=== PATIENT | male | born 1975 | race Caucasian/White ===

== ENCOUNTER 2021-01-08 13:29 | Emergency (ER) | payer BC, SELFPAY ==
[2021-01-08 13:43] VITALS: BP 143/93; PULSE 92; RESP 18; TEMP 36.7; O2SAT 99; BMI 38.7
--- NOTE | 2021-01-08 14:03 | ED_ITS ---
HPI - COVID General: Chief Complaint: COVID symptoms Stated Complaint: Covid+, low O2 Time Seen by Provider: 01/08/21 13:52 Source: patient Mode of arrival: ambulatory Limitations: no limitations Triage information: Has fever, cough or shortness of breath . Exposure to COVID + person last 14 days History of Present Illness: HPI Narrative: Patient is a 45-year-old male who presents to ED today with a complaint of COVID symptoms. Patient states he initially began getting sick 7 days ago and initially thought it was secondary to allergies. He states since onset symptoms have continued to worsen. He complains of nasal congestion, cough, shortness of breath, fatigue, headache, and diarrhea. He went to [facility] yesterday and tested positive. He was told to come to the ED for MCA. Patient's vitals stable upon arrival. PMH significant for heart disease and obesity. MD complaint: known COVID positive Prior covid testing: yes, results known Prior testing date: 01/07/21 COVID 19 common symptoms: positive cough, non-productive cough, dyspnea, fatigue, body aches, headache(s), nasal congestion and diarrhea; negative fever(s), throat pain, nausea or vomiting COVID 19 other sytmptoms: negative chest pain or confusion Onset (ago): day(s) Severity: mild Pertinent comorbid conditions: heart disease and obesity Treatment prior to arrival: none COVID Results: No Data to Display Review of Systems Const: Reports: body aches and fatigue; Denies: fever(s) Eyes: Denies: change in vision ENMT: Reports: nasal congestion; Denies: throat pain or odynophagia Card: Denies: chest pain, palpitations, irregular heart rhythm, edema, lightheadedness, syncope or pre-syncope Resp: Reports: dyspnea and non-productive cough; Denies: wheezing, hemoptysis or chest congestion GI: Reports: diarrhea; Denies: abdominal pain, nausea, vomiting, hematochezia or melena Musc: Denies: neck pain, back pain, extremity pain or joint pain Skin/Breast: Denies: rash Neuro: Reports: headache(s); Denies: numbness in extremities, weakness in extremities, sensory changes, dizziness or confusion Physical Exam Const: COMMON NORMALS: no acute distress, patient oriented x3, no limitations and alert GENERAL APPEARANCE: cooperative NUTRITIONAL APPEARANCE: obese ORIENTATION/CONSCIOUSNESS: Yes awake, Yes oriented to person, Yes oriented to place and Yes oriented to time HENMT: COMMON NORMALS: normocephalic and atraumatic HEAD & SCALP: normocephalic and atraumatic Resp: COMMON NORMALS: normal respiratory effort and clear to auscultation bilaterally AUSCULTATION: clear to auscultation bilaterally Cardio: COMMON NORMALS: regular rate and regular rhythm RATE: regular rate RHYTHM: regular rhythm Neuro: FLORESITA COMA SCALE: document GCS findings Floresita coma scale eye opening: Spontaneous Donalds coma scale verbal response: Orientated Donalds coma scale motor response: Obey commands Floresita coma scale total score: 15 COMMON NORMALS: patient oriented x3 SENSORIUM/ORIENTATION: Yes alert, Yes oriented to person, Yes oriented to place and Yes oriented to time Skin: COMMON NORMALS: no rashes or lesions noted GENERAL SKIN EXAM: no rashes or lesions noted Course Vital Signs: Vital signs: Vital Signs Temperature 98.1 F 01/08/21 13:43 Pulse Rate 92 01/08/21 13:43 Respiratory Rate 18 01/08/21 13:43 Blood Pressure 143/93 01/08/21 13:43 Pulse Oximetry 99 01/08/21 13:43 MDM - COVID MDM Narrative: Medical decision making narrative: Patient appears in no acute distress. His vital signs are perfect. Patient will be written outpatient orders for MCA. He will be discharged straight from ED to infusion center. [facility] faxed [facility] and verified by myself. They will be scanned into patient's chart. COVID Results: No Data to Display Monoclonal Antibody - ED Inclusion/Exclusion Criteria age >/= 12 years, symptom onset less than 10 days ago and + direct Sars-Cov-2 test less than 7-10 days ago obesity (BMI >25 or 85%til for age) and cardiovascular disease or htn not requiring hospitalization, not requiring oxygen (if not chronically on oxygen) and no increase oxygen requirement (if chronically on oxygen) Patient education patient/family/caregiver received/reviewed fact sheet, Emergency Use Authorization/unapproved drug status discussed with patient/family/caregiver, alternatives to this treatment discussed with patient/family/caregiver, risks and benefits of medication reviewed with patient/family/caregiver, patient/family/caregiver given opportunity for questions, which were answered and patient consents to receiving Monoclonal Antibody Treatment Plan for treatment Meets criteria for Monoclonal Antibody infusion Date of symptom(s) onset: 01/01/21 Where are the positive COVID test results, if positive?: Scanned into [facility] Ordering Monoclonal Antibody infusion for today Discharge Plan Discharge Patient Disposition: Home Clinical Impression: COVID-19 Condition: Stable Discharge Orders: Discharge ED (Routine); Ordered 01/08/21 Ordered By: Zo Jain Other Ambulatory Orders: Request for MCA (Routine) Timeframe: 1 Day Facility: [facility] - Location: Outpatient Surgical Services Ordered By: Zo Jain Patient Instructions: COVID-19 (Coronavirus Disease 2019) (ED) Activity Restrictions/Additional Instructions: Go straight to infusion center for monoclonal antibody treatment/infusion. Coding Level of Care Code ED Behavioral Services Tech for Abril Weber Exam Detailed
== END 2021-01-08 14:20 | disposition home or self-care (01) ==
PROVIDERS: Emergency Provider Physician Assistant
DX: U07.1 COVID-19 (principal)
CPT/HCPCS: 99281

== ENCOUNTER 2021-01-08 14:36 | Outpatient (CLI) | payer BC, SELFPAY ==
[2021-01-08 14:44] VITALS: BP 127/83; PULSE 97; RESP 19; TEMP 36.8; O2SAT 98; BMI 38.7
[2021-01-08 15:15] VITALS: BP 142/81; PULSE 97; RESP 19; TEMP 36.8; O2SAT 98
[2021-01-08 16:06] VITALS: BP 130/81; PULSE 92; RESP 19; TEMP 36.2; O2SAT 97
== END 2021-01-08 14:37 | disposition home or self-care (01) ==
PROVIDERS: Visit Provider Family Medicine
DX: U07.1 COVID-19 (principal)
CPT/HCPCS: 96365

== ENCOUNTER 2021-01-10 01:34 | Inpatient (IN) | payer BC, SELFPAY ==
[2021-01-10] VITALS (43 sets, daily range): BP systolic 92–176; BP diastolic 61–109; PULSE 89–130; RESP 3–31; TEMP 36.2–36.8; O2SAT 95–100; BMI 34.9
--- NOTE | 2021-01-10 01:50 | XRR_ITS ---
PROCEDURE INFORMATION: Exam: XR Chest Exam date and time: 01/10/2021 1:50 AM Age: 45 years old Clinical indication: Shortness of breath; Prior surgery; Surgery type: Coronary stents x 2; Patient HX: Severe SOB. Covid + TECHNIQUE: Imaging protocol: XR of the chest. Views: 1 view. COMPARISON: No relevant prior studies available. FINDINGS: Lungs: There are patchy ground-glass opacities present within the mid and lower hemithoraces bilaterally, left slightly worse than the right, findings compatible with a bilateral interstitial pneumonia. COVID-19 pneumonia can have this appearance. Pleural spaces: Unremarkable. No pleural effusion. No pneumothorax. Heart/Mediastinum: Unremarkable. No cardiomegaly. Bones/joints: Unremarkable. XR/XR chest 1V portable [id number] IMPRESSION: Patchy ground-glass opacities within the mid lower hemithoraces bilaterally compatible with a bilateral interstitial pneumonia. Radiation Dose CTDIVOL = (mGy): DLP = (mGy-cm)
--- NOTE | 2021-01-10 01:57 | ED_ITS ---
Documented by User: RHONDA Liriano 01/10/21 02:01 HPI - General Adult General: Chief complaint: Nausea/Vomiting/Diarrhea Stated complaint: SOB, COVID +, COVID INFUSION ON WED Time Seen by Provider: 01/10/21 01:40 History of Present Illness: HPI narrative: Patient improved presents with increased shortness of breath from home this evening. Patient recently diagnosed with Covid he is post 10 days start of symptoms. Received monoclonal antibody infusion. Patient states he just been weak not able to eat well has been drinking fluids. But he said increased shortness of breath began this evening he has been having some nausea and dry heaves and cough. And the cough is nonproductive. Has not had a fever the whole time. Does have a history of 3 stents placed at age 37. Patient has chest discomfort. MD complaint: Shortness of breath recent Covid positive Onset (ago): hour(s) Severity scale (1-10): 8 Associated symptoms: Reports cough, decreased appetite, dyspnea, fevers/chills, nausea and other (Sore throat); Deny chest pain, headache(s) or rash Review of Systems Const: Denies: fever(s), chills or body aches Eyes: Denies: eye discharge ENMT: Reports: throat pain; Denies: oral sores or nasal congestion Card: Denies: chest pain or dyspnea on exertion Resp: Reports: dyspnea and non-productive cough GI: Reports: nausea : Denies: difficulty urinating Musc: Reports: other (Myalgias); Denies: extremity pain Skin/Breast: Denies: rash Neuro: Denies: headache(s) Psych: Denies: anxiety or depression John/Lymph: Denies: easy bruising Physical Exam Const: COMMON NORMALS: no acute distress (Child appears very well is playful in no distress) GENERAL APPEARANCE: cooperative HENMT: COMMON NORMALS: normocephalic, external ears normal, EAC's normal, TM's normal bilaterally and Normal external nose present HEAD & SCALP: normal to inspection and normocephalic FACE & SINUS: normal facial exam NOSE: Normal external nose present and No nasal discharge present EXTERNAL EAR: Yes external ears normal EXTERNAL AUDITORY CANAL: EAC's normal TYMPANIC MEMBRANE: TM's normal bilaterally MOUTH: Normal oral and palatal mucosa present THROAT: posterior oropharynx normal Eye: COMMON NORMALS: conjunctivae normal CONJUNCTIVA: Yes conjunctivae normal Lymph: LYMPHATIC: no lymphadenopathy noted Chest: COMMONS NORMALS: normal inspection of the chest Resp: COMMON NORMALS: No retractions and No use of accessory muscles EFFORT & INSPECTION: Yes tachypneic AUSCULTATION: rhonchi Cardio: COMMON NORMALS: regular rhythm RATE: tachycardic RHYTHM: regular rhythm GI: COMMON NORMALS: Normal to inspection, nondistended, normoactive bowel sounds present Extremity: COMMON NORMALS: normal to inspection Skin: COMMON NORMALS: no rashes or lesions noted NARRATIVE SKIN EXAM: Lower extremities cool to touch. Pulses intact. GENERAL SKIN EXAM: no rashes or lesions noted Course Vital Signs: Vital signs: Vital Signs Temperature 97.1 F L 01/10/21 01:45 Pulse Rate 130 H 01/10/21 01:45 Respiratory Rate 30 H 01/10/21 01:45 Blood Pressure 142/95 01/10/21 01:45 Pulse Oximetry 96 01/10/21 01:45 [facility] - General Adult Lab Data: Labs: Lab Results 01/10/21 01/10/21 01/10/21 02:05 02:05 02:05 WBC 11.1 10^3/uL H 10 ^3/uL (4.0-10.0) RBC 5.21 10^6/uL 10^6 /uL (4.1-5.3) Hgb 15.8 g/dL g/dL (11.7-16.6) Hct 49.5 % % (42.0-52.0) MCV 95.0 fl H fl (80-94) MCH 30.3 pg pg (28.0-34.0) MCHC 31.9 g/dL g/dL (30.0-36.0) RDW 12.0 % L % (12.1-15.1) Plt Count 337 10^3/cmm 10^3 /cmm (130-400) MPV 10.2 fL fL (7.4-10.4) Neut % (Auto) 84.3 % % Lymph % (Auto) 8.6 % % [place] % (Auto) 5.2 % % Eos % (Auto) 0.0 % % Baso % (Auto) 0.3 % % Neut # (Auto) 9.36 10^3/uL H 10 ^3/uL (1.8-7.7) Lymph # (Auto) 1.0 10^3/uL 10^3/ uL (0.8-4.8) [place] # (Auto) 0.6 10^3/uL 10^3/ uL (0.2-0.9) Eos # (Auto) 0.0 10^3/uL 10^3/ uL (0.0-0.8) Baso # (Auto) 0.0 10^3/uL 10^3/ uL (0.0-0.1) Nucleated RBC % (a uto) 0 % % Nucleated RBCs # 0.0 /100WBC /100W BC PT Cancelled INR Cancelled D-Dimer Cancelled Specimen Type Sample Site ABG pO2 ABG HCO3 ABG Base Excess Ronald Test Hematocrit O2 Delivery Device FiO2 Crop And Soil Technician ID Sodium 124 mmol/L L mmol /L (136-145) Potassium 5.1 mmol/L mmol/L (3.5-5.1) Chloride 87 mmol/L L mmol/ L (98-107) Carbon Dioxide 6 mmol/L L* mmol/ L (22-29) Anion Gap 36.1 H (5-19) BUN 22 mg/dL H mg/dL (6-20) Creatinine 0.9 mg/dL mg/dL (0.7-1.2) GFR Calculation 90.8 mL/min mL/mi n (90-130) Glucose 450 mg/dL H mg/dL (65-115) POC Glucose Calculated Osmolal ity 281 mOsm/kg L mOs m/kg (285-295) Lactate Calcium 8.3 mg/dL L mg/dL (8.5-10.5) Total Bilirubin 0.2 mg/dL mg/dL (0.15-1.2) AST 19 U/L U/L (0-40) ALT 24 U/L U/L (0-41) Alkaline Phosphata se 93 IU/L IU/L (40-130) Troponin T Baselin e Total Protein 6.3 g/dL L g/dL (6.6-8.7) Albumin 3.4 g/dL L g/dL (3.5-5.2) Globulin 2.9 g/dL g/dL (1.3-4.6) Serum Ketones 01/10/21 01/10/2121 02:05 02:05 02:05 WBC RBC Hgb Hct MCV MCH MCHC RDW Plt Count MPV Neut % (Auto) Lymph % (Auto) [place] % (Auto) Eos % (Auto) Baso % (Auto) Neut # (Auto) Lymph # (Auto) [place] # (Auto) Eos # (Auto) Baso # (Auto) Nucleated RBC % (a uto) Nucleated RBCs # PT INR D-Dimer Specimen Type Sample Site ABG pO2 ABG HCO3 ABG Base Excess Ronald Test Hematocrit O2 Delivery Device FiO2 Crop And Soil Technician ID Sodium Potassium Chloride Carbon Dioxide Anion Gap BUN Creatinine GFR Calculation Glucose POC Glucose Calculated Osmolal ity Lactate 2.0 mmol/L mmol/L (0.5-2.2) Calcium Total Bilirubin AST ALT Alkaline Phosphata se Troponin T Baselin e 111 ng/L H* ng/L (0-15) Total Protein Albumin Globulin Serum Ketones Positive H (Negative) 01/10/21 01/10/21 02:54 02:58 WBC RBC Hgb Hct MCV MCH MCHC RDW Plt Count MPV Neut % (Auto) Lymph % (Auto) [place] % (Auto) Eos % (Auto) Baso % (Auto) Neut # (Auto) Lymph # (Auto) [place] # (Auto) Eos # (Auto) Baso # (Auto) Nucleated RBC % (a uto) Nucleated RBCs # PT INR D-Dimer Specimen Type Arterial Sample Site Radial, left ABG pO2 119.0 mmHg H mmHg (80.0-100.0) ABG HCO3 2.7 mmol/L L mmol /L (22-26) ABG Base Excess -26.2 mmol/L L mm ol/L (-2.0-2.0) Ronald Test Pos Hematocrit 46.8 % % (42-52) O2 Delivery Device None FiO2 21.0 % % Crop And Soil Technician ID [email or web address] Sodium Potassium Chloride Carbon Dioxide Anion Gap BUN Creatinine GFR Calculation Glucose POC Glucose 417 mg/dL H mg/dL (70-110) Calculated Osmolal ity Lactate Calcium Total Bilirubin AST ALT Alkaline Phosphata se Troponin T Baselin e Total Protein Albumin Globulin Serum Ketones EKG Data^: EKG 1: Computer generated interpretation: Chest X-Ray 01/10/21 01:50 IMPRESSION: Patchy ground-glass opacities within the mid lower hemithoraces bilaterally compatible with a bilateral interstitial pneumonia. Radiation Dose CTDIVOL = (mGy): DLP = (mGy-cm) Discharge Plan Discharge Patient Disposition: Admitted As Inpatient Clinical Impression: COVID-19, DKA (diabetic ketoacidosis) Condition: Stable Coding Level of Care Code ED Captain/Airline Pilot for Chg Fwd Exam Comprehensive Documented by User: Nicholas Garcia MD 01/10/21 03:18 HPI - General Adult General: Chief complaint: Nausea/Vomiting/Diarrhea Stated complaint: SOB, COVID +, COVID INFUSION ON WED Time Seen by Provider: 01/10/21 01:40 Course Vital Signs: Vital signs: Vital Signs Temperature 97.1 F L 01/10/21 01:45 Pulse Rate 130 H 01/10/21 01:45 Respiratory Rate 30 H 01/10/21 01:45 Blood Pressure 142/95 01/10/21 01:45 Pulse Oximetry 96 01/10/21 01:45 MDM - General Adult MDM Narrative: Medical decision making narrative: I saw patient with the midlevel patient is in DKA likely from some dehydration and his Covid infection. He is now requiring any oxygen for his Covid he does have an acidosis from his DKA with an anion gap. Patient started on insulin drip given IV fluids here I spoke to the hospitalist will admit to the ICU at this time. Lab Data: Labs: Lab Results 01/10/21 01/10/21 01/10/21 02:05 02:05 02:05 WBC 11.1 10^3/uL H 10 ^3/uL (4.0-10.0) RBC 5.21 10^6/uL 10^6 /uL (4.1-5.3) Hgb 15.8 g/dL g/dL (11.7-16.6) Hct 49.5 % % (42.0-52.0) MCV 95.0 fl H fl (80-94) MCH 30.3 pg pg (28.0-34.0) MCHC 31.9 g/dL g/dL (30.0-36.0) RDW 12.0 % L % (12.1-15.1) Plt Count 337 10^3/cmm 10^3 /cmm (130-400) MPV 10.2 fL fL (7.4-10.4) Neut % (Auto) 84.3 % % Lymph % (Auto) 8.6 % % [place] % (Auto) 5.2 % % Eos % (Auto) 0.0 % % Baso % (Auto) 0.3 % % Neut # (Auto) 9.36 10^3/uL H 10 ^3/uL (1.8-7.7) Lymph # (Auto) 1.0 10^3/uL 10^3/ uL (0.8-4.8) [place] # (Auto) 0.6 10^3/uL 10^3/ uL (0.2-0.9) Eos # (Auto) 0.0 10^3/uL 10^3/ uL (0.0-0.8) Baso # (Auto) 0.0 10^3/uL 10^3/ uL (0.0-0.1) Nucleated RBC % (a uto) 0 % % Nucleated RBCs # 0.0 /100WBC /100W BC PT Cancelled INR Cancelled D-Dimer Cancelled Specimen Type Sample Site ABG pO2 ABG HCO3 ABG Base Excess Ronald Test Hematocrit O2 Delivery Device FiO2 Crop And Soil Technician ID Sodium 124 mmol/L L mmol /L (136-145) Potassium 5.1 mmol/L mmol/L (3.5-5.1) Chloride 87 mmol/L L mmol/ L (98-107) Carbon Dioxide 6 mmol/L L* mmol/ L (22-29) Anion Gap 36.1 H (5-19) BUN 22 mg/dL H mg/dL (6-20) Creatinine 0.9 mg/dL mg/dL (0.7-1.2) GFR Calculation 90.8 mL/min mL/mi n (90-130) Glucose 450 mg/dL H mg/dL (65-115) POC Glucose Calculated Osmolal ity 281 mOsm/kg L mOs m/kg (285-295) Lactate Calcium 8.3 mg/dL L mg/dL (8.5-10.5) Total Bilirubin 0.2 mg/dL mg/dL (0.15-1.2) AST 19 U/L U/L (0-40) ALT 24 U/L U/L (0-41) Alkaline Phosphata se 93 IU/L IU/L (40-130) Troponin T Baselin e Total Protein 6.3 g/dL L g/dL (6.6-8.7) Albumin 3.4 g/dL L g/dL (3.5-5.2) Globulin 2.9 g/dL g/dL (1.3-4.6) Serum Ketones 01/10/21 01/10/21 01/10/21 02:05 02:05 02:05 WBC RBC Hgb Hct MCV MCH MCHC RDW Plt Count MPV Neut % (Auto) Lymph % (Auto) [place] % (Auto) Eos % (Auto) Baso % (Auto) Neut # (Auto) Lymph # (Auto) [place] # (Auto) Eos # (Auto) Baso # (Auto) Nucleated RBC % (a uto) Nucleated RBCs # PT INR D-Dimer Specimen Type Sample Site ABG pO2 ABG HCO3 ABG Base Excess Ronald Test Hematocrit O2 Delivery Device FiO2 Crop And Soil Technician ID Sodium Potassium Chloride Carbon Dioxide Anion Gap BUN Creatinine GFR Calculation Glucose POC Glucose Calculated Osmolal ity Lactate 2.0 mmol/L mmol/L (0.5-2.2) Calcium Total Bilirubin AST ALT Alkaline Phosphata se Troponin T Baselin e 111 ng/L H* ng/L (0-15) Total Protein Albumin Globulin Serum Ketones Positive H (Negative) 01/10/21 01/10/21 02:54 02:58 WBC RBC Hgb Hct MCV MCH MCHC RDW Plt Count MPV Neut % (Auto) Lymph % (Auto) [place] % (Auto) Eos % (Auto) Baso % (Auto) Neut # (Auto) Lymph # (Auto) [place] # (Auto) Eos # (Auto) Baso # (Auto) Nucleated RBC % (a uto) Nucleated RBCs # PT INR D-Dimer Specimen Type Arterial Sample Site Radial, left ABG pO2 119.0 mmHg H mmHg (80.0-100.0) ABG HCO3 2.7 mmol/L L mmol /L (22-26) ABG Base Excess -26.2 mmol/L L mm ol/L (-2.0-2.0) Ronald Test Pos Hematocrit 46.8 % % (42-52) O2 Delivery Device None FiO2 21.0 % % Crop And Soil Technician ID [email or web address] Sodium Potassium Chloride Carbon Dioxide Anion Gap BUN Creatinine GFR Calculation Glucose POC Glucose 417 mg/dL H mg/dL (70-110) Calculated Osmolal ity Lactate Calcium Total Bilirubin AST ALT Alkaline Phosphata se Troponin T Baselin e Total Protein Albumin Globulin Serum Ketones EKG Data^: EKG 1: Attestation: I personally reviewed and interpreted this EKG as follows: EKG interpretation date: 01/10/21 EKG interpretation time: 02:09 Interpretation: atrial flutter hr [address] or t wave abnormalities qrs 109 qtc 418 Computer generated interpretation: Chest X-Ray 01/10/21 01:50 IMPRESSION: Patchy ground-glass opacities within the mid lower hemithoraces bilaterally compatible with a bilateral interstitial pneumonia. Radiation Dose CTDIVOL = (mGy): DLP = (mGy-cm) Critical Care Time Critical Care Time: Critical Care Time: Yes Total Critical Care Time: 35 Attestation: The high probability of a clinically significant, sudden or life threatening deterioration of the patient's [] system(s) required my full and direct attention, intervention and personal management. The critical care time is as shown. This time is in addition to time spent performing any reported procedures but includes the following: [x] Data and vital sign review and interpretation [x] Patient assessment, examination and intervention [x] Documentation [x] Medication orders and management Discharge Plan Discharge Patient Disposition: Admitted As Inpatient Clinical Impression: COVID-19, DKA (diabetic ketoacidosis) Condition: Stable Coding Level of Care Code ED Captain/Airline Pilot for Chg Fwd Exam Comprehensive
--- NOTE | 2021-01-10 01:57 | ECG_ITS ---
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 Measurements Intervals [place] Rate: 129 P: AR: QRS: -9 QRSD: 109 T: 68 QT: 342 QTc: 502 Interpretive Statements SINUS TACHYCARDIA LOW QRS VOLTAGE IN EXTREMITY LEADS [QRS DEFLECTION < 0.5 mV IN LIMB LEADS] SEPTAL MYOCARDIAL INFARCTION , OF INDETERMINATE AGE [40+ ms Q WAVE IN V1/V2] No previous ECG available for comparison Electronically Signed On 01-10-2021 19:47:11 DIRECTOR OF DISTANCE LEARNING by Tommie Rodriguez M.D. [id number]
[2021-01-10] MEDS: ondansetron 2 mg/ML SDV 2 mL 4 MG IVP ×2 (02:07→11:17)
[2021-01-10] MEDS: sodium chloride 0.9% 1,000 ML 999 ML IV ×2 (02:07→03:01)
[2021-01-10 02:14] LABS: Basophils % 0.3 %; Hematocrit 49.5 % (42.0-52.0); Hemoglobin 15.8 g/dL (11.7-16.6); Lymphocytes % 8.6 %; Mean Corpuscular HGB Conc 31.9 g/dL (30.0-36.0); Mean Corpuscular Hemoglobin 30.3 pg (28.0-34.0); Mean Platelet Volume 10.2 fL (7.4-10.4); Monocytes # 0.6 10^3/uL (0.2-0.9); Monocytes % 5.2 %; Neutrophils # 9.36 10^3/uL (1.8-7.7); Neutrophils % 84.3 %; Nucleated Red Blood Cells % 0 %; Platelet Count 337 10^3/cmm (130-400); Red Blood Count 5.21 10^6/uL (4.1-5.3); White Blood Count 11.1 10^3/uL (4.0-10.0)
[2021-01-10 02:33] LABS: Alanine Aminotransferase 24 U/L (0-41); Albumin Level 3.4 g/dL (3.5-5.2); Alkaline Phosphatase 93 IU/L (40-130); Anion Gap 36.1 (5-19); Aspartate Amino Transferase 19 U/L (0-40); Blood Urea Nitrogen 22 mg/dL (6-20); Calcium 8.3 mg/dL (8.5-10.5); Chloride 87 mmol/L (98-107); Globulin 2.9 g/dL (1.3-4.6); Glomerular Filtration Rate 90.8 mL/min (90-130); Glucose 450 mg/dL (65-115); Osmolality Calculated 281 mOsm/kg (285-295); Potassium 5.1 mmol/L (3.5-5.1); Sodium 124 mmol/L (136-145); Total Bilirubin 0.2 mg/dL (0.15-1.2); Total Protein 6.3 g/dL (6.6-8.7)
[2021-01-10 02:41] LABS: Troponin(5th) Baseline 111 ng/L (0-15)
[2021-01-10 02:43] LABS: Carbon Dioxide 6 mmol/L (22-29)
[2021-01-10 03:02] LABS: Ketone (Acetest) Serum Positive (Negative)
[2021-01-10 03:03] LABS: Glucose Point of Care 417 mg/dL (70-110)
[2021-01-10 03:09] LABS: Arterial Blood Gas Hematocrit 46.8 % (42-52); Base Excess ABG -26.2 mmol/L (-2.0-2.0); Blood Gas Allen Test Pos; Blood Gas Sample Type Arterial; HCO3 ABG 2.7 mmol/L (22-26)
[2021-01-10 03:10] LABS: Blood Gas Sample Site Radial, left
[2021-01-10] MEDS: insulin regular-human 250 UNIT in sodium chloride 0.9% 250 ML 10.6 UNIT IV (03:23)
--- NOTE | 2021-01-10 03:54 | PM.HP ---
Providers/Chief Complaint Admitting Physician: Santiago Chau Chief Complaint: SOB, COVID +, COVID INFUSION ON WED History of Present Illness Harry Rizo is a 45 year old male with past medical history of diabetes, dyslipidemia, hypertension who presents with complaints of shortness of breath and cough since last 11 or 12 days. The patient was diagnosed with Covid and was treated with monoclonal antibodies. Denies associated chest pain, fever or chills. Reports runny nose and congestion. Reports nausea but no vomiting. No abdominal pain. No diarrhea. He was not able to drink or eat well. The patient has par-mosjtyz-xnxoehsei diabetes. Today he was found to have severe DKA in the emergency room. Chest x-ray revealed bilateral infiltrates consistent with Covid pneumonia. The patient reports prior episodes of DKA. Review of Systems General: Reports: 10 or more systems reviewed and unremarkable except in HPI and below Medications/Allergies Home Medications Medication Instructions Recorded Confirmed Last Taken Type atorvastatin 01/08/21 Unknown History clopidogrel [Plavix] 75 mg PO 01/08/21 Unknown History lisinopril 01/08/21 Unknown History metformin mg 01/08/21 Unknown History metoprolol tartrate 01/08/21 Unknown History pantoprazole PO 01/08/21 Unknown History polymyxin B sulf-trimethoprim 01/08/21 01/08/21 Unknown History Allergies Allergy/AdvReac Type Severity Reaction Status Date / Time acetaminophen [From Vicodin] Allergy ALGY-Swell Verified 01/08/21 14:46 Lip/Tongue/Throat hydrocodone [From Vicodin] Allergy ALGY-Swell Verified 01/08/21 14:46 Lip/Tongue/Throat Vitals/I&O/Wt Last Vital Signs Temp 97.1 F L 01/10/21 01:45 Pulse 104 H 01/10/21 01:49 Resp 22 H 01/10/21 01:49 BP 142/95 01/10/21 01:49 Pulse Ox 99 01/10/21 01:49 01/09/21 01/09/21 01/10/21 14:59 22:59 06:59 Intake Total 1000 / 1000 Balance 1000 / 1000 Weight last 48 hrs Weight 104.326 kg Physical Exam Narrative: EXAM NARRATIVE: The patient is awake alert. Moderate distress secondary to cough. Oriented x4. Mood and affect are appropriate. Responses are adequate. Skin is warm and dry. Moist mucous membranes Eyes PERRL, extraocular muscles are intact Neck supple. No JVD Lungs minimal bilateral crackles. No respiratory distress. However he coughs a lot. The cough is dry. Heart S1, S2, regular Abdomen is soft, nontender, bowel sounds are present Extremities no edema cyanosis or calf tenderness bilaterally No focal deficits. Normal speech. Data : 01/10/21 02:05 01/10/21 02:05 Other Labs: Laboratory Results WBC 11.1 10^3/uL (4.0-10.0) H 01/10/21 02:05 RBC 5.21 10^6/uL (4.1-5.3) 01/10/21 02:05 Hgb 15.8 g/dL (11.7-16.6) 01/10/21 02:05 Hct 49.5 % (42.0-52.0) 01/10/21 02:05 MCV 95.0 fl (80-94) H 01/10/21 02:05 MCH 30.3 pg (28.0-34.0) 01/10/21 02:05 MCHC 31.9 g/dL (30.0-36.0) 01/10/21 02:05 RDW 12.0 % (12.1-15.1) L 01/10/21 02:05 Plt Count 337 10^3/cmm (130-400) 01/10/21 02:05 MPV 10.2 fL (7.4-10.4) 01/10/21 02:05 Neut % (Auto) 84.3 % 01/10/21 02:05 Lymph % (Auto) 8.6 % 01/10/21 02:05 Alexander % (Auto) 5.2 % 01/10/21 02:05 Eos % (Auto) 0.0 % 01/10/21 02:05 Baso % (Auto) 0.3 % 01/10/21 02:05 Neut # (Auto) 9.36 10^3/uL (1.8-7.7) H 01/10/21 02:05 Lymph # (Auto) 1.0 10^3/uL (0.8-4.8) 01/10/21 02:05 Alexander # (Auto) 0.6 10^3/uL (0.2-0.9) 01/10/21 02:05 Eos # (Auto) 0.0 10^3/uL (0.0-0.8) 01/10/21 02:05 Baso # (Auto) 0.0 10^3/uL (0.0-0.1) 01/10/21 02:05 Nucleated RBC % (auto) 0 % 01/10/21 02:05 Nucleated RBCs # 0.0 /100WBC 01/10/21 02:05 PT Cancelled 01/10/21 02:05 INR Cancelled 01/10/21 02:05 D-Dimer Cancelled 01/10/21 02:05 Specimen Type Arterial 01/10/21 02:58 Sample Site Radial, left 01/10/21 02:58 ABG pO2 119.0 mmHg (80.0-100.0) H 01/10/21 02:58 ABG HCO3 2.7 mmol/L (22-26) L 01/10/21 02:58 ABG Base Excess -26.2 mmol/L (-2.0-2.0) L 01/10/21 02:58 Ronald Test Pos 01/10/21 02:58 Hematocrit 46.8 % (42-52) 01/10/21 02:58 O2 Delivery Device None 01/10/21 02:58 FiO2 21.0 % 01/10/21 02:58 Administrative Office Specialist ID [email or web address] 01/10/21 02:58 Sodium 124 mmol/L (136-145) L 01/10/21 02:05 Potassium 5.1 mmol/L (3.5-5.1) 01/10/21 02:05 Chloride 87 mmol/L (98-107) L 01/10/21 02:05 Carbon Dioxide 6 mmol/L (22-29) L* 01/10/21 02:05 Anion Gap 36.1 (5-19) H 01/10/21 02:05 BUN 22 mg/dL (6-20) H 01/10/21 02:05 Creatinine 0.9 mg/dL (0.7-1.2) 01/10/21 02:05 GFR Calculation 90.8 mL/min (90-130) 01/10/21 02:05 Glucose 450 mg/dL (65-115) H 01/10/21 02:05 POC Glucose 417 mg/dL (70-110) H 01/10/21 02:54 Calculated Osmolality 281 mOsm/kg (285-295) L 01/10/21 02:05 Lactate 2.0 mmol/L (0.5-2.2) 01/10/21 02:05 Calcium 8.3 mg/dL (8.5-10.5) L 01/10/21 02:05 Total Bilirubin 0.2 mg/dL (0.15-1.2) 01/10/21 02:05 AST 19 U/L (0-40) 01/10/21 02:05 ALT 24 U/L (0-41) 01/10/21 02:05 Alkaline Phosphatase 93 IU/L (40-130) 01/10/21 02:05 Troponin T Baseline 111 ng/L (0-15) H* 01/10/21 02:05 Total Protein 6.3 g/dL (6.6-8.7) L 01/10/21 02:05 Albumin 3.4 g/dL (3.5-5.2) L 01/10/21 02:05 Globulin 2.9 g/dL (1.3-4.6) 01/10/21 02:05 Serum Ketones Positive (Negative) H 01/10/21 02:05 Impressions Chest X-Ray 01/10/21 01:50 IMPRESSION: Patchy ground-glass opacities within the mid lower hemithoraces bilaterally compatible with a bilateral interstitial pneumonia. Radiation Dose CTDIVOL = (mGy): DLP = (mGy-cm) A&P Assessment and plan (1) COVID-19: Status: Acute (2) DKA (diabetic ketoacidosis): Status: Acute (3) Troponin I above reference range: Status: Acute (4) Hyponatremia: Status: Acute Additional A&P Information 45-year-old male with past medical history of type 2 diabetes, not on insulin who is presenting with shortness of breath and cough. The patient is recently diagnosed with COVID-19 pneumonia. Status post monoclonal antibody infusion. Not on any specific treatments for Covid. Emergency room he is found to have severe DKA. No respiratory distress or hypoxia. Severe DKA. The patient is being admitted to ICU. Due to COVID-19 will need to be more careful with IV fluids. He already received a bolus of IV fluids. We will continue hydration in ICU at 150 cc/h. We will repeat chemistry panel 4 hours to adjust fluids and electrolytes. He will be on insulin drip protocol. COVID-19 pneumonia. No hypoxia or respiratory failure. We will continue symptomatic management. I feel that we need to avoid steroids until we stabilize his DKA. We will consider it later. He is out of window for remdesivir. Supportive care now. Oxygen to maintain his oxygenation at 94-95. Hyponatremia. Probably secondary to above. Will manage with IV fluids and monitor. DVT prophylaxis. Lovenox. Will order D-dimer. Will consider higher doses of Lovenox if D-dimer is elevated. Abnormal troponin. I could not find the EKG in ER. We will check the next EKG. However he is not having any chest pain. We will start him on aspirin and Lipitor. We will monitor his EKG and troponin level. CODE STATUS. He wants to be full code. The plan of care was discussed with the patient and his . They verbalized understanding and agreement. Attestations Medical Necessity Statement*: Based on my assessment of patient's current condition, findings, diagnosis and plan of care I expect that the patient will spend more than 2 midnights in the hospital Coding Level of Care Code Acute Medical Billing Assistant for g Fwd Diagnoses COVID-19 U07.1 DKA (diabetic ketoacidosis) E11.10 Troponin I above reference range R77.8 Hyponatremia E87.1
--- NOTE | 2021-01-10 03:57 | ECG_ITS ---
[facility] Test Date: 2021-01-10 Pat Name: Harry Rizo Department: Room: ICU10 Gender: Male Antenna Specialist: : 1975 Requested By: David Slaughter Order Number: [id number] Mee MD: Tommie Rodriguez M.D. Measurements Intervals [place] Rate: 122 P: 42 WV: 163 QRS: -7 QRSD: 92 T: 62 QT: 363 QTc: 519 Interpretive Statements SINUS TACHYCARDIA LOW QRS VOLTAGE [QRS DEFLECTION < 0.5/1.0 mV IN LIMB/CHEST LEADS] ANTEROSEPTAL MYOCARDIAL INFARCTION , OF INDETERMINATE AGE [40+ ms Q WAVE IN V1-V4] Compared to ECG 01/10/2021 02:09:51 Atrial flutter no longer present Myocardial infarct finding still present Electronically Signed On 01-10-2021 19:52:10 CERTIFIED MEDICATION AIDE by Tommie Rodriguez M.D. [email or web address] hospitalCookapptrinity [facility].[employer]/store/[id number]
[2021-01-10 04:15] LABS: Troponin 5 2HR 171.3 ng/L (0-15); Troponin 5 2HR Delta 60.3 ABS# (0-10)
[2021-01-10] MEDS: aspirin 81 mg EC Tablet PO ×2 (04:32→08:38)
[2021-01-10] MEDS: famotidine 20 mg/2 mL INJ IVP ×2 (04:32→15:36)
[2021-01-10] MEDS: enoxaparin 100 mg/mL Syringe SUBCUT ×2 (04:32→15:36)
[2021-01-10] MEDS: metoprolol tartrate 50 mg Tablet PO ×3 (04:33→19:57)
[2021-01-10] MEDS: sodium chloride 0.9% 1,000 ML 150 ML IV (04:33)
[2021-01-10 04:34] LABS: ABG PH Result 7.02 (7.35-7.45)
[2021-01-10 04:35] LABS: Albumin Level 3.1 g/dL (3.5-5.2); Anion Gap 32.6 (5-19); Blood Urea Nitrogen 23 mg/dL (6-20); C Reactive Protein 31.2 mg/L (0.0-4.9); Calcium 7.7 mg/dL (8.5-10.5); Chloride 92 mmol/L (98-107); Glomerular Filtration Rate 90.8 mL/min (90-130); Glucose 413 mg/dL (65-115); Magnesium 1.9 mg/dL (1.7-2.3); Phosphorus 3.5 mg/dL (2.5-4.5); Potassium 4.6 mmol/L (3.5-5.1); Sodium 126 mmol/L (136-145)
[2021-01-10 04:35] LABS: ABG PCO2 10.3 mmHg (35-45)
[2021-01-10 04:39] LABS: Carbon Dioxide 6 mmol/L (22-29)
[2021-01-10 04:47] LABS: D Dimer 1.15 ug/mIFEU (0-0.59)
--- NOTE | 2021-01-10 05:00 | PC.NURSE ---
Arrived from ED approximately 0400, transferred self to bed, AO x4 follows commands, RR slightly labored on RA O2 sat high 90s denied SOB, no c/o at this time
[2021-01-10 05:14] LABS: Estmated Average Glucose 387
[2021-01-10 05:17] LABS: Hemoglobin A1C 15.1 % (4.0-6.0)
--- NOTE | 2021-01-10 07:57 | ECG_ITS ---
[facility] Test Date: 2021-01-10 Pat Name: Harry Rizo Department: Room: ICU10 Gender: Male Staff Psychologist: : 1975 Requested By: David Slaughter Order Number: [id number] Mee MD: Tommie Rodriguez M.D. Measurements Intervals [place] Rate: 98 P: 57 GA: 168 QRS: -15 QRSD: 86 T: 68 QT: 372 QTc: 476 Interpretive Statements SINUS RHYTHM LOW QRS VOLTAGE [QRS DEFLECTION < 0.5/1.0 mV IN LIMB/CHEST LEADS] POSSIBLE RIGHT VENTRICULAR CONDUCTION DELAY [RSR (QR) IN V1/V2] ANTEROSEPTAL MYOCARDIAL INFARCTION , OF INDETERMINATE AGE [40+ ms Q WAVE IN V1-V4] Compared to ECG 01/10/2021 04:42:49 Sinus tachycardia no longer present Myocardial infarct finding still present Electronically Signed On 01-10-2021 19:51:41 MANAGER PHARMACEUTICAL by Tommie Rodriguez M.D. [email or web address] [email or web address]/[id number]
--- NOTE | 2021-01-10 08:12 | USCV_ITS ---
Harry Rizo Age: 45 Gender: M : 1975 Exam Date: 01/10/2021 08:49 Ordering Phys: Micheal Castellanos MD Technologist: Kinsey Pruitt [place] [facility] [place]: [place]B BP: 103 / 65 HR: 101 Rhythm: Sinus Technical Quality: Adequate MEASUREMENTS (Male / Female) Normal Values 2D ECHO LV Diastolic Diameter PLAX 3.1 cm 4.2 - 5.9 / 3.9 - 5.3 cm LV Systolic Diameter PLAX 2.4 cm IVS Diastolic Thickness 1.4 cm 0.6 - 1.0 / 0.6 - 0.9 cm IVS Systolic Thickness 2.0 cm LVPW Diastolic Thickness 2.0 cm 0.6 - 1.0 / 0.6 - 0.9 cm LVPW Systolic Thickness 2.5 cm LVOT Diameter 2.0 cm LV Ejection Fraction 2D Teich 45.6 % LV Ejection Fraction MOD 2C 38.6 % LV Ejection Fraction 2C AL 38.9 % LA Diameter 3.5 cm LA Width 2.8 cm LA Height 3.5 cm RA Width 2.8 cm RA Height 3.9 cm Aorta at Sinotubular Diameter 2.9 cm DOPPLER AV Peak Velocity 83.0 cm/s LVOT Peak Velocity 66.0 cm/s AV Area Cont Eq vti 2.9 cm squared AV Area Cont Eq pk 2.5 cm squared MV Peak Velocity 109.0 cm/s MV Area PHT 5.9 cm squared Mitral E to A Ratio 1.5 MV E' Velocity 48.0 cm/s Mitral E to MV E' Ratio 13.7 Mitral E to LV E' Lateral Ratio 14.4 Mitral E to LV E' Septal Ratio 13.1 TV Peak E Velocity 61.0 cm/s FINDINGS Left Ventricle Dilated left ventricular cavity. Moderately decreased left ventricular systolic function. Left ventricular ejection fraction is estimated at 30-35 %. There is moderate to severe hypokinesis of mid to apical anterior, mid anteroseptal and all apical davila. Grade II diastolic dysfunction, moderately elevated filling pressures. Right Ventricle Probably normal right ventricular systolic function. Right Atrium Right atrium not well visualized. Left Atrium Left atrium not well visualized. Mitral Valve Structurally normal mitral valve. No mitral valve stenosis. Aortic Valve Aortic valve not well visualized. No aortic valve stenosis. Tricuspid Valve Tricuspid valve not well visualized. Pulmonic Valve Pulmonic valve not well visualized. Pericardium No pericardial effusion. Aorta Normal sized aortic root. CONCLUSIONS 1. Dilated left ventricular cavity. Moderately decreased left ventricular systolic function. Left ventricular ejection fraction is estimated at 30-35 %. There is moderate to severe hypokinesis of mid to apical anterior, mid anteroseptal and all apical davila. Grade II diastolic dysfunction, moderately elevated filling pressures. 2. No prior similar studies to compare. Ruth Ann Lino MD (Electronically Signed) Final Date: 10 January 2021 21:27 S
[2021-01-10] MEDS: cholecalciferol (vitamin D3) 5,000 unit Tablet 5000 UNIT PO (08:38)
[2021-01-10] MEDS: atorvastatin 40 mg Tablet PO (08:38)
[2021-01-10 08:42] LABS: Glucose Point of Care 236 mg/dL (70-110)
[2021-01-10 08:42] LABS: Glucose Point of Care 359 mg/dL (70-110)
[2021-01-10 08:42] LABS: Glucose Point of Care 441 mg/dL (70-110)
[2021-01-10 08:42] LABS: Glucose Point of Care 383 mg/dL (70-110)
[2021-01-10 09:31] LABS: Anion Gap 29.2 (5-19); Blood Urea Nitrogen 26 mg/dL (6-20); Calcium 7.9 mg/dL (8.5-10.5); Chloride 96 mmol/L (98-107); Creatinine Clr Calc Pharmacy 98.2376; Glomerular Filtration Rate 72.1 mL/min (90-130); Glucose 207 mg/dL (65-115); Potassium 4.2 mmol/L (3.5-5.1); Sodium 130 mmol/L (136-145)
[2021-01-10] MEDS: perflutren protein-a microsphr 0.22 mg/mL SDV 3 mL IV (09:31)
[2021-01-10 09:41] LABS: Carbon Dioxide 9 mmol/L (22-29)
[2021-01-10 09:54] LABS: Troponin 5 6HR 2311 ng/L (0-15); Troponin 5 6HR Delta 2200 ng/L (0-12)
[2021-01-10] MEDS: benzonatate 100 mg Capsule 200 MG PO (12:25)
[2021-01-10] MEDS: dextrose 5%-sod chloride 0.45% 1,000 ML 75 ML IV (12:26)
[2021-01-10 12:35] LABS: Glucose Point of Care 193 mg/dL (70-110)
[2021-01-10 12:35] LABS: Glucose Point of Care 233 mg/dL (70-110)
[2021-01-10 12:35] LABS: Glucose Point of Care 168 mg/dL (70-110)
[2021-01-10 12:35] LABS: Glucose Point of Care 109 mg/dL (70-110)
[2021-01-10 12:53] LABS: Anion Gap 22.8 (5-19); Blood Urea Nitrogen 30 mg/dL (6-20); Calcium 7.8 mg/dL (8.5-10.5); Carbon Dioxide 12 mmol/L (22-29); Chloride 98 mmol/L (98-107); Glomerular Filtration Rate 80.4 mL/min (90-130); Glucose 117 mg/dL (65-115); Magnesium 1.9 mg/dL (1.7-2.3); Phosphorus 1.5 mg/dL (2.5-4.5); Potassium 3.8 mmol/L (3.5-5.1); Sodium 129 mmol/L (136-145)
--- NOTE | 2021-01-10 13:52 | P.PN_ITS ---
Subjective Subjective: Interval history: Patient was seen and examined this morning, was complaining of epigastric discomfort, as well as cough, Denies any shortness of breath, palpitation. Continues to be in anion gap , continues to be on insulin drip. Medications: Reviewed: Yes Vitals/I&O/Wt Last Vital Signs Temp 97.5 F L 01/10/21 09:00 Pulse 98 01/10/21 13:30 Resp 13 01/10/21 12:00 BP 109/84 01/10/21 12:00 Pulse Ox 97 01/10/21 12:00 01/09/21 01/10/21 01/10/21 22:59 06:59 14:59 Intake Total 1038.900 / 1038.900 81.533 / 81.533 Balance 1038.900 / 1038.900 81.533 / 81.533 Weight last 48 hrs Weight 104.326 kg Weight 104.326 kg Physical Exam Const: COMMON NORMALS: patient oriented x3 HENMT: COMMON NORMALS: normocephalic and atraumatic HEAD & SCALP: normocephalic and atraumatic Resp: COMMON NORMALS: clear to auscultation bilaterally EFFORT & INSPECTION: Yes symmetric chest movement AUSCULTATION: clear to auscultation bilaterally Cardio: COMMON NORMALS: regular rate, regular rhythm, S1 normal heart sound present, S2 normal heart sound present, No gallops present (Cardio), No murmurs present (Cardio), No rub (Cardio) and Peripheral pulses 2+ throughout RATE: regular rate RHYTHM: regular rhythm HEART SOUNDS: S1 normal heart sound present and S2 normal heart sound present PERIPHERAL PULSES: Peripheral pulses 2+ throughout GI: COMMON NORMALS: Normal to inspection, nondistended, normoactive bowel sounds present, Soft to palpation, non-tender, No hepatosplenomegaly present and no masses AUSCULTATION: Yes normoactive bowel sounds PALPATION: Yes Soft to palpation and Yes No hepatosplenomegaly present RECTAL EXAM: Yes deferred Extremity: COMMON NORMALS: no clubbing, cyanosis or edema and no pedal edema Neuro: COMMON NORMALS: patient oriented x3 Data : 01/10/21 02:05 01/10/21 16:37 A&P Assessment and plan (1) NSTEMI (non-ST elevated myocardial infarction): Likely type II NSTEMI , possible viral myocarditis, cannot conclusively rule out type I NSTEMI. 45-year-old male with past medical history of hypertension , diabetes coronary artery disease status post stent, currently complaining of epigastric discomfort, which according to him happens whenever he has upset stomach. Troponin trend: With significant delta , EKG: Without any acute ST-T wave changes. X-ray chest: Bilateral patchy groundglass opacity within the mid lower hemithoraces bilaterally. compatible with a bilateral interstitial pneumonia. 2D echo: Continue aspirin, statin, beta-amish and therapeutic anticoagulation.Sublingual nitro as needed. Continue to monitor on telemetry Appreciate cardiology input Status: Acute (2) COVID-19: S/p antibody infusion. Patient is 10 to 11 days out from initial symptom onset. Cannot conclusively rule out Possible superimposed bacterial pneumonia. Procalcitonin Urine Legionella Bacterial antigen panel Sputum culture: Monitor x-ray chest Will empirically start on ceftriaxone and Azithromycin. Trend inflammatory markers. We will hold on dexamethasone for now Supplemental oxygen as needed Duo nebs Status: Acute (3) DKA (diabetic ketoacidosis): On DKA protocol. Status: Acute (4) Hyponatremia: Status: Acute Additional A&P Information 45-year-old male with past medical history of type 2 diabetes, not on insulin who is presenting with shortness of breath and cough. The patient is recently diagnosed with COVID-19 pneumonia. Status post monoclonal antibody infusion. Not on any specific treatments for Covid. Emergency room he is found to have severe DKA. No respiratory distress or hypoxia. Severe DKA. The patient is being admitted to ICU. Due to COVID-19 will need to be more careful with IV fluids. He already received a bolus of IV fluids. We will continue hydration in ICU at 150 cc/h. We will repeat chemistry panel 4 hours to adjust fluids and electrolytes. He will be on insulin drip protocol. COVID-19 pneumonia. No hypoxia or respiratory failure. We will continue symptomatic management. I feel that we need to avoid steroids until we stabilize his DKA. We will consider it later. He is out of window for remdesiv ir. Supportive care now. Oxygen to maintain his oxygenation at 94-95. Hyponatremia. Probably secondary to above. Will manage with IV fluids and monitor. DVT prophylaxis. Lovenox. Will order D-dimer. Will consider higher doses of Lovenox if D-dimer is elevated. Abnormal troponin. I could not find the EKG in ER. We will check the next EKG. However he is not having any chest pain. We will start him on aspirin and Lipitor. We will monitor his EKG and troponin level. CODE STATUS. He wants to be full code. The plan of care was discussed with the patient and his . They verbalized understanding and agreement. Attestations Medical Necessity Statement*: Patient is to the hospital for management of above defined Problems. Time Spent in Patient Care: Greater than 35 minutes (>than 50% of time spent in counselling and/or direct pt care on unit) . Critical Care Time: The high probability of a clinically significant, sudden or life threatening deterioration of the patient's [] system(s) required my full and direct attention, intervention and personal management. The critical care time is as shown. This time is in addition to time spent performing any reported procedures but includes the following: [x] Data and vital sign review and interpretation [x] Patient assessment, examination and intervention [x] Documentation [x] Medication orders and management Critical Care Time (min): 40 Coding Level of Care Code Acute Lip And Gate Builder for [facility] Fwd Exam Detailed Diagnoses NSTEMI (non-ST elevated myocardial infarction) I21.4 COVID-19 U07.1 DKA (diabetic ketoacidosis) E11.10 Hyponatremia E87.1
[2021-01-10 14:34] LABS: Glucose Point of Care 106 mg/dL (70-110)
[2021-01-10 14:34] LABS: Glucose Point of Care 104 mg/dL (70-110)
[2021-01-10 15:32] LABS: Glucose Point of Care 123 mg/dL (70-110)
--- NOTE | 2021-01-10 16:08 | PC.NURSE ---
[address] Castellanos. Reviewed labs, blood sugar, and IVF. Orders received.
[2021-01-10 17:06] LABS: Anion Gap 21.1 (5-19); Blood Urea Nitrogen 27 mg/dL (6-20); Carbon Dioxide 15 mmol/L (22-29); Chloride 99 mmol/L (98-107); Glomerular Filtration Rate 90.8 mL/min (90-130); Glucose 144 mg/dL (65-115); Phosphorus 1.6 mg/dL (2.5-4.5); Potassium 4.1 mmol/L (3.5-5.1); Sodium 131 mmol/L (136-145)
[2021-01-10 17:55] LABS: Glucose Point of Care 153 mg/dL (70-110)
[2021-01-10 17:55] LABS: Glucose Point of Care 163 mg/dL (70-110)
[2021-01-10 18:42] LABS: Glucose Point of Care 245 mg/dL (70-110)
--- NOTE | 2021-01-10 19:35 | P.CONIM_ITS ---
Providers/Reason For Consult Consulting Physician/Specialty*: Dr. Lino, cardiology Reason for Consult*: Elevated troponin, history of CAD Attending Physician: Micheal Castellanos MD History of Present Illness History of Present Illness Harry Rizo is a 45 year old male with past medical history of obesity, hypertension, diabetes mellitus, dyslipidemia, family history of coronary artery disease and coronary artery disease. Patient has history of NH when he presented 12 hours after symptom onset and was found to have occluded px LAD that was stented. Large diagonal pre-LAD with 95% ostial stenosis also stented. Circumflex chronically occluded. Dominant RCA with diffuse irregularity. significant LV dysfunction (LVEF=35%). Patient subsequently was lost to follow- up. He had COVID-19 infection 10 days prior to arrival and received monoclonal antibody infusion. He presented with worsening shortness of breath, nausea, dry heaving and worsening shortness of breath. He also complained of some epigastric discomfort but denies having any chest pain. EKG with sinus rhythm low QRS voltage. Anteroseptal NH of indeterminate age. He was found to be in DKA on arrival and was started on DKA protocol and placed on isolation given his recent COVID-19 diagnosis. I have been asked to evaluate the patient as patient's troponin T increased from 111 to 2311 at 6 hours. Review of Systems General: Reports: 10 or more systems reviewed and unremarkable except in HPI and below Meds/Allergies Home Medications and Allergies Home Medications Medication Instructions Recorded Confirmed Last Taken Type atorvastatin 80 mg PO DAILY 01/08/21 01/10/21 Unknown History clopidogrel [Plavix] 75 mg PO DAILY 01/08/21 01/10/21 Unknown History lisinopril 20 mg PO DAILY 01/08/21 01/10/21 Unknown History metformin 1,000 mg PO BID 01/08/21 01/10/21 Unknown History metoprolol tartrate 50 mg PO BID 01/08/21 01/10/21 Unknown History pantoprazole 40 mg PO DAILY 01/08/21 01/10/21 Unknown History aspirin 81 mg PO DAILY 01/10/21 01/10/21 Unknown History Allergies Allergy/AdvReac Type Severity Reaction Status Date / Time acetaminophen [From Vicodin] Allergy ALGY-Swell Verified 01/08/21 14:46 Lip/Tongue/Throat hydrocodone [From Vicodin] Allergy ALGY-Swell Verified 01/08/21 14:46 Lip/Tongue/Throat Current Medications Current Medications Generic Name Dose Route Start Last Admin Trade Name Freq PRN Reason Stop Dose Admin Aspirin 81 mg 01/10/21 04:22 01/10/21 08:38 Aspirin 81 Mg Ec Tablet PO 81 mg DAILY SHEELA Administration Atorvastatin Calcium 40 mg 01/10/21 09:00 01/10/21 08:38 Atorvastatin 40 Mg Tablet PO 40 mg DAILY SHEELA Administration Benzonatate 200 mg 01/10/21 12:10 01/10/21 12:25 Benzonatate 100 Mg Capsule PO 200 mg TID PRN Administration COUGH Enoxaparin Sodium 100 mg 01/10/21 04:30 01/10/21 15:36 Enoxaparin 100 Mg/Ml Syringe 1 mg/kg (100 mg) 100 mg SUBCUT Administration Q12H SHEELA Famotidine 20 mg 01/10/21 04:00 01/10/21 15:36 Famotidine 20 Mg/2 Ml Inj IVP 20 mg Q12H SHEELA Administration Dextrose/Sodium Chloride 1,000 mls @ 75 mls/hr 01/10/21 12:15 01/10/21 12:26 Dextrose 5%-Sod Chloride 0.45% IV 75 mls/hr .[id number] SHEELA Administration Metoprolol Tartrate 50 mg 01/10/21 04:25 01/10/21 09:51 Metoprolol Tartrate 50 Mg Tablet PO 50 mg BID@0900,2100 SHEELA Administration Ondansetron HCl 4 mg 01/10/21 03:56 01/10/21 11:17 Ondansetron 2 Mg/Ml Sdv 2 Ml IVP 4 mg Q6H PRN Administration NAUSEA AND VOMITING Vitamin D 5,000 unit 01/10/21 09:00 01/10/21 08:38 Cholecalciferol (Vitamin D3) 5,000 Unit Tablet PO 5,000 unit DAILY SHEELA Administration PFSH Acute PFSH: Medical History (Updated 01/10/21 @ 19:39 by Ruth Ann Lino MD) CAD in [place] artery Diabetes mellitus Surgical History (Updated 01/10/21 @ 19:37 by Ruth Ann Lino MD) Stented coronary artery Vitals/I&O/Wt Last Vital Signs Temp 98.2 F 01/10/21 12:30 Pulse 103 H 01/10/21 18:30 Resp 16 01/10/21 17:30 BP 142/93 01/10/21 18:30 Pulse Ox 95 01/10/21 18:30 01/10/21 01/10/21 01/10/21 06:59 14:59 22:59 Intake Total 1038.900 / 1038.900 84.883 / 84.883 16.733 / 101.616 Output Total 275 / 275 Balance 1038.900 / 1038.900 -190.117 / -190.117 16.733 / -173.384 Weight last 48 hrs Weight 230 lb Weight 230 lb Physical Exam Narrative: EXAM NARRATIVE: GENERAL: Obese man sitting by side of bed dry heaving HEENT: Pupils equal round reactive to light. No pallor or icterus. NECK: No JVD, No carotid bruit. CARDIOVASCULAR SYSTEM: S1-S2 regular. Tachycardia present no murmurs heard. RESPIRATORY SYSTEM: Chest clear to auscultation. No wheezes rhonchi or rubs heard. EXTREMITIES: No cyanosis or clubbing. No edema. 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 No focal neurological deficits. Data Other Data: Other data: Coronary angiogram 06/03/2013 Conclusions Procedure Summary Symptom onset about 12 hours before presentation. LAD occluded and stented. Large diagonal pre LAD occlusion with 95% stenosis also stented. CX chronically occluded. Significant LV dysfunction. LMCA: Normal. LAD: Acute occlusion. Lesion on Prox LAD: Proximal subsection.100% stenosis 25 mm length reduced to 0%. Pre procedure DANYELLE 0 flow was noted. Post Procedure DANYELLE III flow was present. The guidewire cross was successful.Poor runoff was present.The lesion was diagnosed as a high risk lesion.The lesion was diffuse and eccentric.The lesion showed evidence of thrombus presence, with irregular contour, severe angulation and severe tortuosity.Lesion plaque is ruptured.Culprit lesion.Bifurcation lesion. Treatment results:Interventional treatment was successful. Comments:Severely angulated LAD closed after the first diagonal Devices used - BS EMERGE MR [id number]. Diameter: 2.5 mm. Length: 12 mm. 2 inflation(s) to a max pressure of: 6 matthew. - BS PROMUS SHWETHA US MR STENT 3.44m76fz. 1 inflation(s) to a max pressure of: 12 matthew. Lesion on 1st Diag: Ostial.99% stenosis 8 mm length reduced to 0%. Pre procedure DANYELLE III flow was noted. Post Procedure DANYELLE III flow was present. The guidewire cross was successful.Good runoff was present.The lesion was diagnosed as a low risk lesion.Bifurcation lesion. Treatment results:Interventional treatment was successful. Devices used - BS EMERGE MR 2.82h05rr. Diameter: 2.5 mm. Length: 12 mm. 1 inflation(s) - BS PROMUS SHWETHA US MR STENT 2.10n10pa. 1 inflation(s) to a max pressure of: 14 matthew. LCx: Chronic occlusion. RCA: Diffuse irregularity. A&P Assessment and plan (1) DKA (diabetic ketoacidosis): Status: Acute Qualifiers: Diabetes mellitus type: type 2 (2) COVID-19: Status: Acute (3) NSTEMI (non-ST elevated myocardial infarction): Likely Type II non-ST elevation [place]. -Echocardiogram with moderately decreased LV function with moderate to severe hypokinesis of mid to apical anterior, mid anteroseptal and apical davila. -Given patient's history of noncompliance and no imaging since 2013, it is difficult to say if these regional wall motion abnormalities are new. -Continue aspirin, statin Lovenox and metoprolol. -We will consider cardiac catheterization versus stress testing for further risk stratification once patient is hemodynamically stable. Status: Acute (4) CAD in [place] artery: Status: Acute Additional A&P Information Congestive heart failure: Heart failure with reduced ejection fraction (LVEF equal to 30-35%) Hypertension Diabetes mellitus Gastroesophageal reflux disease Thank you for allowing me to participate in patient's care. Please feel free to call with questions or concerns. Consult Attestations Time Spent in Patient Care: 16 - 35 minutes (>than 50% of time spent in counselling and/or direct pt care on unit) . 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
[2021-01-10] MEDS: azithromycin 500 MG in sodium chloride 0.9% 250 ML 250 MG IV (19:42)
[2021-01-10] MEDS: cefTRIAXone 1,000 MG in sodium chloride 0.9% (plus) 50 ML 100 MG IV (19:55)
[2021-01-10 20:44] LABS: Albumin Level 2.9 g/dL (3.5-5.2); Anion Gap 18.7 (5-19); Blood Urea Nitrogen 26 mg/dL (6-20); Calcium 8.2 mg/dL (8.5-10.5); Carbon Dioxide 17 mmol/L (22-29); Chloride 101 mmol/L (98-107); Glomerular Filtration Rate 104.1 mL/min (90-130); Glucose 116 mg/dL (65-115); Magnesium 1.9 mg/dL (1.7-2.3); Phosphorus 1.2 mg/dL (2.5-4.5); Potassium 3.7 mmol/L (3.5-5.1); Sodium 133 mmol/L (136-145)
--- NOTE | 2021-01-10 21:05 | PC.NURSE ---
Anion gap closed, Dr. Chau notified, gave t.o. for 20 units lantus q12 hours, level 2 insulin ACHS, shut off insulin one hour after giving lantus
[2021-01-10] MEDS: insulin glargine 100 units/1 mL 20 UNIT SUBCUT (23:18)
[2021-01-10 23:28] LABS: Glucose Point of Care 91 mg/dL (70-110)
[2021-01-10 23:28] LABS: Glucose Point of Care 121 mg/dL (70-110)
[2021-01-10 23:56] LABS: Albumin Level 2.9 g/dL (3.5-5.2); Anion Gap 17.3 (5-19); Blood Urea Nitrogen 24 mg/dL (6-20); Calcium 8.1 mg/dL (8.5-10.5); Carbon Dioxide 17 mmol/L (22-29); Chloride 102 mmol/L (98-107); Glomerular Filtration Rate 121.4 mL/min (90-130); Glucose 80 mg/dL (65-115); Magnesium 1.9 mg/dL (1.7-2.3); Phosphorus 1.1 mg/dL (2.5-4.5); Potassium 3.3 mmol/L (3.5-5.1); Sodium 133 mmol/L (136-145)
[2021-01-11] VITALS (35 sets, daily range): BP systolic 108–149; BP diastolic 60–90; PULSE 70–121; RESP 5–27; TEMP 36.3–37.1; O2SAT 94–99
[2021-01-11 03:18] LABS: Glucose Point of Care 168 mg/dL (70-110)
[2021-01-11 03:45] LABS: Basophils % 0.1 %; Eosinophils % 0.1 %; Hematocrit 40.8 % (42.0-52.0); Hemoglobin 13.9 g/dL (11.7-16.6); Lymphocytes # 1.3 10^3/uL (0.8-4.8); Lymphocytes % 17.3 %; Mean Corpuscular HGB Conc 34.1 g/dL (30.0-36.0); Mean Corpuscular Hemoglobin 30.7 pg (28.0-34.0); Mean Corpuscular Volume 90.1 fl (80-94); Mean Platelet Volume 10.4 fL (7.4-10.4); Monocytes # 0.7 10^3/uL (0.2-0.9); Monocytes % 8.6 %; Neutrophils % 73.2 %; Nucleated Red Blood Cells % 0 %; Platelet Count 222 10^3/cmm (130-400); Red Blood Count 4.53 10^6/uL (4.1-5.3); White Blood Count 7.7 10^3/uL (4.0-10.0)
[2021-01-11 04:03] LABS: Alanine Aminotransferase 28 U/L (0-41); Albumin Level 2.8 g/dL (3.5-5.2); Alkaline Phosphatase 72 IU/L (40-130); Aspartate Amino Transferase 83 U/L (0-40); Blood Urea Nitrogen 22 mg/dL (6-20); Calcium 8.2 mg/dL (8.5-10.5); Carbon Dioxide 15 mmol/L (22-29); Chloride 101 mmol/L (98-107); Globulin 3.4 g/dL (1.3-4.6); Glomerular Filtration Rate 121.4 mL/min (90-130); Glucose 174 mg/dL (65-115); Osmolality Calculated 282 mOsm/kg (285-295); Sodium 132 mmol/L (136-145); Total Bilirubin 0.2 mg/dL (0.15-1.2); Total Protein 6.2 g/dL (6.6-8.7)
[2021-01-11 04:15] LABS: Anion Gap 19.7 (5-19); Potassium 3.7 mmol/L (3.5-5.1)
[2021-01-11] MEDS: enoxaparin 100 mg/mL Syringe SUBCUT ×2 (04:48→15:38)
[2021-01-11] MEDS: famotidine 20 mg/2 mL INJ IVP ×2 (04:48→15:38)
[2021-01-11 07:56] LABS: Glucose Point of Care 322 mg/dL (70-110)
[2021-01-11] MEDS: atorvastatin 40 mg Tablet PO (08:05)
[2021-01-11] MEDS: aspirin 81 mg EC Tablet PO (08:06)
[2021-01-11] MEDS: insulin lispro 100 unit/1 mL SUBCUT ×4 (08:06→21:54)
[2021-01-11] MEDS: cholecalciferol (vitamin D3) 5,000 unit Tablet 5000 UNIT PO (08:06)
[2021-01-11] MEDS: metoprolol tartrate 50 mg Tablet PO ×2 (08:07→21:55)
[2021-01-11] MEDS: insulin glargine 100 units/1 mL 20 UNIT SUBCUT ×2 (09:04→21:54)
[2021-01-11] MEDS: benzonatate 100 mg Capsule 200 MG PO (11:38)
[2021-01-11 11:52] LABS: Glucose Point of Care 413 mg/dL (70-110)
--- NOTE | 2021-01-11 16:52 | P.PN_ITS ---
Subjective Subjective: Interval history: Patient was seen and examined this morning, and gap is closed, patient is transition to basal bolus insulin. Currently saturating well on room air.His other vitals and labs have been reviewed. Medications: Reviewed: Yes Vitals/I&O/Wt Last Vital Signs Temp 97.7 F 01/11/21 16:00 Pulse 97 01/11/21 16:00 Resp 25 H 01/11/21 16:00 BP 133/86 01/11/21 16:00 Pulse Ox 94 01/11/21 16:00 01/11/21 01/11/21 01/11/21 06:59 14:59 22:59 Intake Total 1700 / 1700 Output Total 950 / 1225 1999 / 1999 Balance -950 / -1123.384 -300 / -300 Weight last 48 hrs Weight 106.141 kg Weight 104.326 kg Weight 104.326 kg Physical Exam Const: COMMON NORMALS: patient oriented x3 HENMT: COMMON NORMALS: normocephalic and atraumatic HEAD & SCALP: normoce phalic and atraumatic Resp: COMMON NORMALS: clear to auscultation bilaterally EFFORT & INSPECTION: Yes symmetric chest movement AUSCULTATION: clear to auscultation bilaterally Cardio: COMMON NORMALS: regular rate, regular rhythm, S1 normal heart sound present, S2 normal heart sound present, No gallops present (Cardio), No murmurs present (Cardio), No rub (Cardio) and Peripheral pulses 2+ throughout RATE: regular rate RHYTHM: regular rhythm HEART SOUNDS: S1 normal heart sound present and S2 normal heart sound present PERIPHERAL PULSES: Peripheral pulses 2+ throughout GI: COMMON NORMALS: Normal to inspection, nondistended, normoactive bowel sounds present, Soft to palpation, non-tender, No hepatosplenomegaly present and no masses AUSCULTATION: Yes normoactive bowel sounds PALPATION: Yes Soft to palpation and Yes No hepatosplenomegaly present RECTAL EXAM: Yes deferred Extremity: COMMON NORMALS: no clubbing, cyanosis or edema and no pedal edema Neuro: COMMON NORMALS: patient oriented x3 Data : 01/11/21 03:15 01/11/21 03:15 A&P Assessment and plan (1) NSTEMI (non-ST elevated myocardial infarction): Likely type II NSTEMI , possible viral myocarditis, cannot conclusively rule out type I NSTEMI. 45-year-old male with past medical history of hypertension , diabetes coronary artery disease status post stent, currently complaining of epigastric discomfort, which according to him happens whenever he has upset stomach. Troponin trend: With significant delta , EKG: Without any acute ST-T wave changes. X-ray chest: Bilateral patchy groundglass opacity within the mid lower hemithoraces bilaterally. compatible with a bilateral interstitial pneumonia. 2D echo: Dilated LV cavity, moderately decreased LV systolic function, LVEF 30 to 35%, moderate to severe hypokinesis of mid to apical anterior, mid anteroseptal and all apical davila. Grade II diastolic dysfunction, moderately elevated filling pressures. Continue aspirin, statin, beta-amish and therapeutic anticoag ulation.Sublingual nitro as needed. Continue to monitor on telemetry Appreciate cardiology input. Status: Acute (2) COVID-19: S/p antibody infusion. Patient is 10 to 11 days out from initial symptom onset. Cannot conclusively rule out Possible superimposed bacterial pneumonia. Procalcitonin: Urine Legionella Bacterial antigen panel Sputum culture: Monitor x-ray chest: Will empirically start on ceftriaxone and Azithromycin. Trend inflammatory markers. We will hold on dexamethasone for now Supplemental oxygen as needed Duo nebs Status: Acute (3) DKA (diabetic ketoacidosis): Was On DKA protocol. Anion gap is closed: Currently on Lantus and sliding scale insulin Carbohydrate consistent diet HbA1c:15.1 Status: Acute Qualifiers: Diabetes mellitus type: type 2 (4) Hyponatremia: Status: Acute Additional A&P Information 45-year-old male with past medical history of type 2 diabetes, not on insulin w ho is presenting with shortness of breath and cough. The patient is recently diagnosed with COVID-19 pneumonia. Status post monoclonal antibody infusion. Not on any specific treatments for Covid. Emergency room he is found to have severe DKA. No respiratory distress or hypoxia. Severe DKA. The patient is being admitted to ICU. Due to COVID-19 will need to be more careful with IV fluids. He already received a bolus of IV fluids. We will continue hydration in ICU at 150 cc/h. We will repeat chemistry panel 4 hours to adjust fluids and electrolytes. He will be on insulin drip protocol. COVID-19 pneumonia. No hypoxia or respiratory failure. We will continue symptomatic management. I feel that we need to avoid steroids until we stabilize his DKA. We will consider it later. He is out of window for remdesivir. Supportive care now. Oxygen to maintain his oxygenation at 94-95. Hyponatremia. Probably secondary to above. Will manage with IV fluids and monitor. DVT prophylaxis. Lovenox. Will order D-dimer. Will consider higher doses of Lovenox if D-dimer is elevated. Abnormal troponin. I could not find the EKG in ER. We will check the next EKG. However he is not having any chest pain. We will start him on aspirin and Lipitor. We will monitor his EKG and troponin level. CODE STATUS. He wants to be full code. The plan of care was discussed with the patient and his . They verbalized understanding and agreement. Attestations Medical Necessity Statement*: Patient needs to be in the for the hospital for management of Above defined problems. Coding Level of Care Code Acute Medical Policy Specialist for [facility] Fwd Exam Detailed Diagnoses NSTEMI (non-ST elevated myocardial infarction) I21.4 COVID-19 U07.1 DKA (diabetic ketoacidosis) E11.10 Diabetes mellitus type: type 2 Hyponatremia E87.1
[2021-01-11] MEDS: cefTRIAXone 1,000 MG in sodium chloride 0.9% (plus) 50 ML 100 MG IV (17:45)
[2021-01-11] MEDS: azithromycin 500 MG in sodium chloride 0.9% 250 ML 250 MG IV (17:45)
--- NOTE | 2021-01-11 17:54 | PM.PN ---
Subjective Subjective: Interval history: Patient looks and feels better. Denies having any chest pain. Still has some nausea and intermittent cough Medications: Reviewed: Yes Vitals/I&O/Wt Last Vital Signs Temp 97.7 F 01/11/21 16:00 Pulse 97 01/11/21 16:00 Resp 25 H 01/11/21 16:00 BP 133/86 01/11/21 16:00 Pulse Ox 94 01/11/21 16:00 01/11/21 01/11/21 01/11/21 06:59 14:59 22:59 Intake Total 1700 / 1700 Output Total 950 / 1225 1999 Balance -950 / -823.384 -300 / -300 Weight last 48 hrs Weight 234 lb Weight 230 lb Weight 230 lb Physical Exam Narrative: EXAM NARRATIVE: GENERAL: Obese man sitting by side of bed dry heaving HEENT: Pupils equal round reactive to light. No pallor or icterus. NECK: No JVD, No carotid bruit. CARDIOVASCULAR SYSTEM: S1-S2 regular. Tachycardia present no murmurs heard. RESPIRATORY SYSTEM: Chest clear to auscultation. No wheezes rhonchi or rubs heard. EXTREMITIES: No cyanosis or clubbing. No edema. 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 No focal neurological deficits. Data : 01/11/21 03:15 01/11/21 03:15 A&P Assessment and plan (1) DKA (diabetic ketoacidosis): Status: Acute Qualifiers: Diabetes mellitus type: type 2 (2) COVID-19: Status: Acute (3) NSTEMI (non-ST elevated myocardial infarction): Likely Type II non-ST elevation [place]. -Cannot completely ruled out type I non-ST elevation NE; he tells me today that his symptoms with prior NE were nausea as well. He did not have any chest discomfort even back then. He gives strong family history of CAD with dad with bypass in his 30s and his 6 siblings all with problems in their 30s. history of high cholesterol in family (familial hyperlipidemia). -Echocardiogram with moderately decreased LV function with moderate to severe hypokinesis of mid to apical anterior, mid anteroseptal and apical davila. -Given patient's history of noncompliance and no imaging since 2013, it is difficult to say if these regional wall motion abnormalities are new. -Continue aspirin, statin Lovenox and metoprolol. -I will consider cardiac catheterization versus stress testing for further risk stratification Wednesday or Wednesday. Status: Acute (4) CAD in [place] artery: Status: Acute Additional A&P Information Congestive heart failure: Heart failure with reduced ejection fraction (LVEF equal to 30-35%) Hypertension Diabetes mellitus Gastroesophageal reflux disease Thank you for allowing me to participate in patient's care. Please feel free to call with questions or concerns. Attestations Medical Necessity Statement*: As per primary team Time Spent in Patient Care: 16 - 35 minutes (>than 50% of time spent in counselling and/or direct pt care on unit). 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
[2021-01-11 19:47] LABS: Glucose Point of Care 322 mg/dL (70-110)
[2021-01-11 21:40] LABS: Glucose Point of Care 335 mg/dL (70-110)
[2021-01-12] VITALS (19 sets, daily range): BP systolic 124–141; BP diastolic 73–90; PULSE 81–113; RESP 0–28; TEMP 36.2–37.1; O2SAT 95–99
[2021-01-12] MEDS: famotidine 20 mg/2 mL INJ IVP ×2 (03:58→18:24)
[2021-01-12] MEDS: enoxaparin 100 mg/mL Syringe SUBCUT ×2 (03:58→18:24)
[2021-01-12 06:30] LABS: Basophils % 0.2 %; Hemoglobin 12.4 g/dL (11.7-16.6); Lymphocytes # 1.5 10^3/uL (0.8-4.8); Lymphocytes % 30.2 %; Mean Corpuscular HGB Conc 34.4 g/dL (30.0-36.0); Mean Corpuscular Hemoglobin 30.2 pg (28.0-34.0); Mean Corpuscular Volume 87.6 fl (80-94); Monocytes # 0.5 10^3/uL (0.2-0.9); Monocytes % 10.5 %; Neutrophils # 2.84 10^3/uL (1.8-7.7); Neutrophils % 58.3 %; Nucleated Red Blood Cells % 0 %; Platelet Count 206 10^3/cmm (130-400); Red Blood Count 4.11 10^6/uL (4.1-5.3); Red Cell Distribution Width 11.9 % (12.1-15.1); White Blood Count 4.9 10^3/uL (4.0-10.0)
[2021-01-12 06:58] LABS: NT Pro B Type Natriuretic Pept 2690 pg/mL (0-125); Procalcitonin 0.08 ng/mL (0-0.5)
[2021-01-12 07:08] LABS: Glucose Point of Care 236 mg/dL (70-110)
[2021-01-12 07:09] LABS: Alanine Aminotransferase 24 U/L (0-41); Albumin Level 2.7 g/dL (3.5-5.2); Alkaline Phosphatase 75 IU/L (40-130); Anion Gap 16.4 (5-19); Aspartate Amino Transferase 28 U/L (0-40); Blood Urea Nitrogen 19 mg/dL (6-20); Calcium 7.7 mg/dL (8.5-10.5); Carbon Dioxide 21 mmol/L (22-29); Chloride 103 mmol/L (98-107); Globulin 2.2 g/dL (1.3-4.6); Glomerular Filtration Rate 231.6 mL/min (90-130); Glucose 221 mg/dL (65-115); Osmolality Calculated 293 mOsm/kg (285-295); Potassium 3.4 mmol/L (3.5-5.1); Sodium 137 mmol/L (136-145); Total Bilirubin 0.2 mg/dL (0.15-1.2); Total Protein 4.9 g/dL (6.6-8.7)
[2021-01-12 07:15] LABS: Troponin T (5th) Once 1180 ng/L (0-15)
[2021-01-12 07:31] LABS: Slide Review Slide Review Perform
--- NOTE | 2021-01-12 08:04 | P.PN_ITS ---
Subjective Medications: Reviewed: Yes Vitals/I&O/Wt Last Vital Signs Temp 98.7 F 01/11/21 20:00 Pulse 83 01/12/21 06:16 Resp 18 01/12/21 06:16 BP 124/73 01/12/21 06:16 Pulse Ox 95 01/12/21 06:16 01/11/21 01/12/21 01/12/21 22:59 06:59 14:59 Intake Total 540 / 2240 Output Total 350 / 2350 Balance 190 / -110 Weight last 48 hrs Weight 234 lb Physical Exam Narrative: EXAM NARRATIVE: GENERAL: Obese man sitting by side of bed dry heaving HEENT: Pupils equal round reactive to light. No pallor or icterus. NECK: No JVD, No carotid bruit. CARDIOVASCULAR SYSTEM: S1-S2 regular. Tachycardia present no murmurs heard. RESPIRATORY SYSTEM: Chest clear to auscultation. No wheezes rhonchi or rubs heard. EXTREMITIES: No cyanosis or clubbing. No edema. 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 No focal neurological deficits. Data : 01/12/21 05:58 01/12/21 05:58 A&P Assessment and plan (1) DKA (diabetic ketoacidosis): off IV insulin. Status: Acute Qualifiers: Diabetes mellitus type: type 2 (2) COVID-19: Status: Acute (3) NSTEMI (non-ST elevated myocardial infarction): Likely Type II non-ST elevation [place]. -Cannot completely ruled out type I non-ST elevation ME; he tells me today that his symptoms with prior ME were nausea as well. He did not have any chest discomfort even back then. He gives strong family history of CAD with dad with bypass in his 30s and his 6 siblings all with problems in their 30s. history of high cholesterol in family (familial hyperlipidemia). -Echocardiogram with moderately decreased LV function with moderate to severe h ypokinesis of mid to apical anterior, mid anteroseptal and apical davila. -Given patient's history of noncompliance and no imaging since 2013, it is difficult to say if these regional wall motion abnormalities are new. -Continue aspirin, statin Lovenox and metoprolol. -I will talk to Dr. Cmumings for cardiac catheterization late Wednesday or Wednesday. -I spoke to patient and his and they are agreeable with the plan.Risks and benefits were discussed with the patients. Possible complications were r eviewed with the patient as well. Status: Acute (4) CAD in [place] artery: Status: Acute Additional A&P Information Congestive heart failure: Heart failure with reduced ejection fraction (LVEF equal to 30-35%); clinically appears euvolemic. Hypertension Diabetes mellitus Gastroesophageal reflux disease Thank you for allowing me to participate in patient's care. Please feel free to call with questions or concerns. Attestations Medical Necessity Statement*: Needs hospital stay for further cardiac work-up Time Spent in Patient Care: 16 - 35 minutes (>than 50% of time spent in counselling and/or direct pt care on unit) . 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
--- NOTE | 2021-01-12 10:36 | PM.PN ---
Subjective Subjective: Interval history: Patient was seen and examined this morning, no acute events overnight. Medications: Reviewed: Yes Vitals/I&O/Wt Last Vital Signs Temp 98.7 F 01/11/21 20:00 Pulse 83 01/12/21 06:16 Resp 18 01/12/21 06:16 BP 124/73 01/12/21 06:16 Pulse Ox 95 01/12/21 06:16 01/11/21 01/12/21 01/12/21 22:59 06:59 14:59 Intake Total 540 / 2240 Output Total 350 / 2350 Balance 190 / -110 Weight last 48 hrs Weight 106.141 kg Physical Exam Const: COMMON NORMALS: patient oriented x3 HENMT: COMMON NORMALS: normocephalic and atraumatic HEAD & SCALP: normocephalic and atraumatic Resp: COMMON NORMALS: clear to auscultation bilaterally EFFORT & INSPECTION: Yes symmetric chest movement AUSCULTATION: clear to auscultation bilaterally Cardio: COMMON NORMALS: regular rate, regular rhythm, S1 normal heart sound present, S2 normal heart sound present, No gallops present (Cardio), No murmurs present (Cardio), No rub (Cardio) and Peripheral pulses 2+ throughout RATE: regular rate RHYTHM: regular rhythm HEART SOUNDS: S1 normal heart sound present and S2 normal heart sound present PERIPHERAL PULSES: Peripheral pulses 2+ throughout GI: COMMON NORMALS: Normal to inspection, nondistended, normoactive bowel sounds present, Soft to palpation, non-tender, No hepatosplenomegaly present and no masses AUSCULTATION: Yes normoactive bowel sounds PALPATION: Yes Soft to palpation and Yes No hepatosplenomegaly present RECTAL EXAM: Yes deferred Extremity: COMMON NORMALS: no clubbing, cyanosis or edema and no pedal edema Neuro: COMMON NORMALS: patient oriented x3 Data : 01/12/21 05:58 01/12/21 05:58 A&P Assessment and plan (1) NSTEMI (non-ST elevated myocardial infarction): Likely type II NSTEMI , possible viral myocarditis, cannot conclusively rule out type I NSTEMI. 45-year-old male with past medical history of hypertension , diabetes coronary artery disease status post stent, currently complaining of epigastric discomfort, which according to him happens whenever he has upset stomach. Troponin trend: With significant delta , EKG: Without any acute ST-T wave changes. X-ray chest: Bilateral patchy groundglass opacity within the mid lower hemithoraces bilaterally. compatible with a bilateral interstitial pneumonia. 2D echo: Dilated LV cavity, moderately decreased LV systolic function, LVEF 30 to 35%, moderate to severe hypokinesis of mid to apical anterior, mid anteroseptal and all apical davila. Grade II diastolic dysfunction, moderately elevated filling pressures. Continue aspirin, statin, beta-amish and therapeutic anticoagulation.Sublingual nitro as needed. Continue to monitor on telemetry Appreciate cardiology input.Due for Cardiac Cath. Status: Acute (2) COVID-19: S/p antibody infusion. Patient is 10 to 11 days out from initial symptom onset. Cannot conclusively rule out Possible superimposed bacterial pneumonia. Procalcitonin: Urine Legionella Bacterial antigen panel Sputum culture: Monitor x-ray chest: Will empirically start on ceftriaxone and Azithromycin. Trend inflammatory markers. We will hold on dexamethasone for now Supplemental oxygen as needed Duo nebs Status: Acute (3) DKA (diabetic ketoacidosis): Was On DKA protocol. Anion gap is closed: Currently on Lantus and sliding scale insulin Carbohydrate consistent diet HbA1c:15.1 Status: Acute Qualifiers: Diabetes mellitus type: type 2 (4) Hyponatremia: Status: Acute Additional A&P Information 45-year-old male with past medical history of type 2 diabetes, not on insulin who is presenting with shortness of breath and cough. The patient is recently diagnosed with COVID-19 pneumonia. Status post monoclonal antibody infusion. Not on any specific treatments for Covid. Emergency room he is found to have severe DKA. No respiratory distress or hypoxia. Severe DKA. The patient is being admitted to ICU. Due to COVID-19 will need to be more careful with IV fluids. He already received a bolus of IV fluids. We will continue hydration in ICU at 150 cc/h. We will repeat chemistry panel 4 hours to adjust fluids and electrolytes. He will be on insulin drip protocol. COVID-19 pneumonia. No hypoxia or respiratory failure. We will continue symptomatic management. I feel that we need to avoid steroids until we stabilize his DKA. We will consider it later. He is out of window for remdesivir. Supportive care now. Oxygen to maintain his oxygenation at 94-95. Hyponatremia. Probably secondary to above. Will manage with IV fluids and monitor. DVT prophylaxis. Lovenox. Will order D-dimer. Will consider higher doses of Lovenox if D-dimer is elevated. Abnormal troponin. I could not find the EKG in ER. We will check the next EKG. However he is not having any chest pain. We will start him on aspirin and Lipitor. We will monitor his EKG and troponin level. CODE STATUS. He wants to be full code. The plan of care was discussed with the patient and his . They verbalized understanding and agreement. Attestations Medical Necessity Statement*: Patient is to be in hospital for management of above defined problems Coding Level of Care Code Acute Authorization Nurse for [facility] Fwd Exam Detailed Diagnoses NSTEMI (non-ST elevated myocardial infarction) I21.4 COVID-19 U07.1 DKA (diabetic ketoacidosis) E11.10 Diabetes mellitus type: type 2 Hyponatremia E87.1
[2021-01-12] MEDS: metoprolol tartrate 50 mg Tablet PO ×2 (10:46→21:48)
[2021-01-12] MEDS: aspirin 81 mg EC Tablet PO (10:48)
[2021-01-12] MEDS: atorvastatin 40 mg Tablet PO (10:48)
[2021-01-12] MEDS: cholecalciferol (vitamin D3) 5,000 unit Tablet 5000 UNIT PO (10:49)
[2021-01-12] MEDS: insulin glargine 100 units/1 mL 20 UNIT SUBCUT (10:50)
[2021-01-12] MEDS: insulin lispro 100 unit/1 mL SUBCUT ×4 (10:56→21:45)
[2021-01-12] MEDS: insulin lispro 100 unit/1 mL 10 UNIT SUBCUT ×3 (10:57→18:26)
[2021-01-12 12:05] LABS: Glucose Point of Care 387 mg/dL (70-110)
--- NOTE | 2021-01-12 14:00 | PC.NURSE ---
Pt sitting up in chair talking to and staff. Pt resp even and non-labored no distress or sob noted. Pt had no c/o pain or discomfort at the present time. no needs voiced. Call light in reach. Will cont to monitor.
[2021-01-12 17:40] LABS: Glucose Point of Care 243 mg/dL (70-110)
[2021-01-12] MEDS: cefTRIAXone 1,000 MG in sodium chloride 0.9% (plus) 50 ML 100 MG IV (18:29)
[2021-01-12] MEDS: azithromycin 500 MG in sodium chloride 0.9% 250 ML 250 MG IV (18:31)
[2021-01-12 20:07] LABS: Glucose Point of Care 394 mg/dL (70-110)
[2021-01-12] MEDS: insulin glargine 100 units/1 mL 30 UNIT SUBCUT (21:45)
[2021-01-13] VITALS (14 sets, daily range): BP systolic 103–165; BP diastolic 57–89; PULSE 64–96; RESP 0–26; TEMP 36.3–36.6; O2SAT 93–99
[2021-01-13 05:25] LABS: Basophils % 0.4 %; Eosinophils % 0.5 %; Hematocrit 35.9 % (42.0-52.0); Hemoglobin 12.3 g/dL (11.7-16.6); Lymphocytes # 2.1 10^3/uL (0.8-4.8); Lymphocytes % 37.9 %; Mean Corpuscular HGB Conc 34.3 g/dL (30.0-36.0); Mean Corpuscular Hemoglobin 30.4 pg (28.0-34.0); Mean Corpuscular Volume 88.9 fl (80-94); Mean Platelet Volume 10.5 fL (7.4-10.4); Monocytes # 0.6 10^3/uL (0.2-0.9); Monocytes % 10.9 %; Neutrophils # 2.78 10^3/uL (1.8-7.7); Neutrophils % 49.4 %; Nucleated Red Blood Cells % 0 %; Platelet Count 235 10^3/cmm (130-400); Red Blood Count 4.04 10^6/uL (4.1-5.3); Red Cell Distribution Width 11.8 % (12.1-15.1); White Blood Count 5.6 10^3/uL (4.0-10.0)
[2021-01-13] MEDS: famotidine 20 mg/2 mL INJ IVP ×2 (05:38→18:15)
[2021-01-13] MEDS: enoxaparin 100 mg/mL Syringe SUBCUT (05:38)
[2021-01-13 05:53] LABS: Alanine Aminotransferase 24 U/L (0-41); Albumin Level 2.4 g/dL (3.5-5.2); Alkaline Phosphatase 89 IU/L (40-130); Anion Gap 10.1 (5-19); Aspartate Amino Transferase 24 U/L (0-40); Blood Urea Nitrogen 19 mg/dL (6-20); Calcium 8.1 mg/dL (8.5-10.5); Carbon Dioxide 27 mmol/L (22-29); Chloride 104 mmol/L (98-107); Globulin 3.3 g/dL (1.3-4.6); Glucose 106 mg/dL (65-115); Osmolality Calculated 289 mOsm/kg (285-295); Potassium 3.1 mmol/L (3.5-5.1); Sodium 138 mmol/L (136-145); Total Bilirubin 0.2 mg/dL (0.15-1.2); Total Protein 5.7 g/dL (6.6-8.7)
[2021-01-13 06:24] LABS: Slide Review Slide Review Perform
[2021-01-13 06:34] LABS: Glucose Point of Care 125 mg/dL (70-110)
[2021-01-13] MEDS: insulin lispro 100 unit/1 mL 10 UNIT SUBCUT ×3 (07:11→18:19)
[2021-01-13] MEDS: metoprolol tartrate 50 mg Tablet PO (10:06)
[2021-01-13] MEDS: aspirin 81 mg EC Tablet PO (10:08)
[2021-01-13] MEDS: cholecalciferol (vitamin D3) 5,000 unit Tablet 5000 UNIT PO (10:08)
[2021-01-13] MEDS: atorvastatin 40 mg Tablet PO (10:08)
[2021-01-13] MEDS: insulin glargine 100 units/1 mL 30 UNIT SUBCUT ×2 (10:09→20:57)
[2021-01-13 10:19] LABS: Magnesium 2.3 mg/dL (1.7-2.3)
[2021-01-13] MEDS: potassium chloride ER 20 mEq Tablet 40 MEQ PO (10:20)
[2021-01-13 12:49] LABS: Glucose Point of Care 284 mg/dL (70-110)
[2021-01-13] MEDS: insulin lispro 100 unit/1 mL SUBCUT ×3 (12:53→20:57)
--- NOTE | 2021-01-13 13:00 | P.PN_ITS ---
Subjective Subjective: Interval history: Patient's nausea has improved markedly. Nausea now is mostly after coughing. Medications: Reviewed: Yes Vitals/I&O/Wt Last Vital Signs Temp 97.6 F 01/13/21 10:00 Pulse 92 01/13/21 10:00 Resp 21 H 01/13/21 10:00 BP 144/87 01/13/21 10:00 Pulse Ox 97 01/13/21 10:00 01/12/21 01/13/21 01/13/21 22:59 06:59 14:59 Intake Total 250 / 250 50 / 50 Output Total 500 / 500 Balance 250 / 250 -500 / -250 50 / 50 Weight last 48 hrs Weight 242 lb 0.7 oz Weight 285 lb 8 oz Weight 249 lb 9.6 oz Physical Exam Narrative: EXAM NARRATIVE: GENERAL: Obese man sitting by side of bed dry heaving HEENT: Pupils equal round reactive to light. No pallor or icterus. NECK: No JVD, No carotid bruit. CARDIOVASCULAR SYSTEM: S1-S2 regular. Tachycardia present no murmurs heard. RESPIRATORY SYSTEM: Chest clear to auscultation. No wheezes rhonchi or rubs heard. EXTREMITIES: No cyanosis or clubbing. No edema. ASPHALT LAYER: Patient is alert oriented ?3. No focal neurological deficits. Data : 01/13/21 04:02 01/13/21 04:02 A&P Assessment and plan (1) DKA (diabetic ketoacidosis): Status: Acute Qualifiers: Diabetes mellitus type: type 2 (2) COVID-19: Status: Acute (3) NSTEMI (non-ST elevated myocardial infarction): Likely Type II non-ST elevation CO. -Cannot completely ruled out type I non-ST elevation CO; he tells me today that his symptoms with prior CO were nausea as well. He did not have any chest discomfort even back then. He gives strong family history of CAD with dad with bypass in his 30s and his 6 siblings all with problems in their 30s. history of high cholesterol in family (?familial hyperlipidemia). -Echocardiogram with moderately decreased LV function with moderate to severe hypokinesis of mid to apical anterior, mid anteroseptal and apical davila. -Given patient's history of noncompliance and no imaging since 2013, it is dif ficult to say if these regional wall motion abnormalities are new. -Continue aspirin, statin Lovenox and metoprolol. -I will talk to Dr. Cummings for cardiac catheterization possibly for Wednesday. -I spoke to patient and his and they are agreeable with the plan.Risks and benefits were discussed with the patients. Possible complications were reviewed with the patient as well. Status: Acute (4) CAD in cabaz[place] artery: Status: Acute Additional A&P Information Congestive heart failure: Heart failure with reduced ejection fraction (LVEF equal to 30-35%); clinically appears euvolemic. Hypertension Diabetes mellitus Gastroesophageal reflux disease Hypokalemia: replaced Thank you for allowing me to participate in patient's care. Please feel free to call with questions or concerns. Attestations Medical Necessity Statement*: Needs hospital stay for further cardiac work-up Time Spent in Patient Care: 16 - 35 minutes (>than 50% of time spent in counselling and/or direct pt care on unit) . Coding Level of Care Code Acute Application Infrastructure Engineer for [facility] Fwd Diagnoses DKA (diabetic ketoacidosis) E11.10 Diabetes mellitus type: type 2 COVID-19 U07.1 NSTEMI (non-ST elevated myocardial infarction) I21.4 CAD in cabazon artery I25.10
[2021-01-13] MEDS: enoxaparin 120 mg/0.8 mL Syringe 110 MG SUBCUT (14:01)
[2021-01-13 17:46] LABS: Glucose Point of Care 312 mg/dL (70-110)
[2021-01-13] MEDS: cefTRIAXone 1,000 MG in sodium chloride 0.9% (plus) 50 ML 100 MG IV (18:16)
[2021-01-13] MEDS: metoprolol succinate ER (24 HR) 50 mg Tablet PO (20:58)
[2021-01-13 21:03] LABS: Glucose Point of Care 256 mg/dL (70-110)
--- NOTE | 2021-01-13 22:20 | P.PN_ITS ---
Subjective Subjective: Interval history: Patient was seen this morning, denies any chest pain, no shortness of breath, no lightheaded, dizziness, is awaiting his cardiac catheterization, no sore throat, no loss of taste, no diarrhea Medications: Reviewed: Yes Vitals/I&O/Wt Last Vital Signs Temp 97.8 F 01/13/21 20:24 Pulse 93 01/13/21 20:24 Resp 23 H 01/13/21 20:24 BP 122/81 01/13/21 20:24 Pulse Ox 96 01/13/21 20:24 01/13/21 01/13/21 01/13/21 06:59 14:59 22:59 Intake Total 50 / 50 120 / 170 Output Total 500 / 500 500 / 500 Balance -500 / -250 50 / 50 -380 / -330 Weight last 48 hrs Weight 109.789 kg Weight 129.501 kg Weight 113.217 kg Physical Exam Const: COMMON NORMALS: no acute distress and patient oriented x3 Resp: COMMON NORMALS: normal respiratory effort, No retractions, No use of accessory muscles and clear to auscultation bilaterally AUSCULTATION: clear to auscultation bilaterally Cardio: COMMON NORMALS: regular rate, regular rhythm, S1 normal heart sound present and S2 normal heart sound present RATE: regular rate RHYTHM: regular rhythm HEART SOUNDS: S1 normal heart sound present and S2 normal heart sound present GI: COMMON NORMALS: Normal to inspection, nondistended, normoactive bowel sounds present, Soft to palpation, non-tender and No hepatosplenomegaly present PALPATION: Yes Soft to palpation and Yes No hepatosplenomegaly present Extremity: COMMON NORMALS: no pedal edema Neuro: COMMON NORMALS: patient oriented x3 Psych: COMMON NORMALS: mental status grossly normal Data : 01/13/21 04:02 01/13/21 04:02 Micro: Microbiology 01/13/21 10:22 Bacterial Antigens - Final Urine,Voided 01/13/21 10:22 Legionella Urinary Antigen - Final Urine,Clean Catch A&P Assessment and plan (1) NSTEMI (non-ST elevated myocardial infarction): Likely type II NSTEMI , possible viral myocarditis, cannot conclusively rule out type I NSTEMI. 45-year-old male with past medical history of hypertension , diabetes coronary artery disease status post stent, currently complaining of epigastric discomfort, which according to him happens whenever he has upset stomach. Troponin trend: With significant delta , EKG: Without any acute ST-T wave changes. X-ray chest: Bilateral patchy groundglass opacity within the mid lower hemithoraces bilaterally. compatible with a bilateral interstitial pneumonia. 2D echo: Dilated LV cavity, moderately decreased LV systolic function, LVEF 30 to 35%, moderate to severe hypokinesis of mid to apical anterior, mid anteroseptal and all apical davila. Grade II diastolic dysfunction, moderately elevated filling pressures. Continue aspirin, statin, beta-amish and therapeutic anticoagulation.Sublingual nitro as needed. Continue to monitor on telemetry Continue aspirin, statin, therapeutic Lovenox, metoprolol Appreciate cardiology input., plan for cardiac catheterization tomorrow Status: Acute (2) COVID-19: S/p antibody infusion Medically managing Status: Acute (3) DKA (diabetic ketoacidosis): Was On DKA protocol. Anion gap is closed: Currently on Lantus and sliding scale insulin Carbohydrate consistent diet HbA1c:15.1 Status: Acute Qualifiers: Diabetes mellitus type: type 2 (4) Hyponatremia: Status: Acute Additional A&P Information 45-year-old male with past medical history of type 2 diabetes, not on insulin who is presenting with shortness of breath and cough. The patient is recently diagnosed with COVID-19 pneumonia. Status post monoclonal antibody infusion. Not on any specific treatments for Covid. Emergency room he is found to have severe DKA. No respiratory distress or hypoxia. CODE STATUS. He wants to be full code. The plan of care was discussed with the patient and his . They verbalized understanding and agreement. Attestations Medical Necessity Statement*: Patient requires hospitalization for NSTEMI, COVID-19 Coding Level of Care Code Acute [employer]form[employer] Mdm Developer for [facility] Fw Diagnoses NSTEMI (non-ST elevated myocardial infarction) I21.4 COVID-19 U07.1 DKA (diabetic ketoacidosis) E11.10 Diabetes mellitus type: type 2 Hyponatremia E87.1
[2021-01-14] VITALS (74 sets, daily range): BP systolic 115–148; BP diastolic 63–95; PULSE 0–103; RESP 0–29; TEMP 36.4–36.8; O2SAT 91–97
[2021-01-14] MEDS: enoxaparin 120 mg/0.8 mL Syringe 110 MG SUBCUT ×2 (01:32→21:14)
[2021-01-14] MEDS: famotidine 20 mg/2 mL INJ IVP ×2 (04:06→17:08)
[2021-01-14 06:31] LABS: Alanine Aminotransferase 23 U/L (0-41); Albumin Level 2.4 g/dL (3.5-5.2); Alkaline Phosphatase 77 IU/L (40-130); Anion Gap 14.9 (5-19); Aspartate Amino Transferase 16 U/L (0-40); Blood Urea Nitrogen 20 mg/dL (6-20); Calcium 8.5 mg/dL (8.5-10.5); Carbon Dioxide 25 mmol/L (22-29); Chloride 103 mmol/L (98-107); Globulin 3.1 g/dL (1.3-4.6); Glucose 168 mg/dL (65-115); Osmolality Calculated 294 mOsm/kg (285-295); Potassium 3.9 mmol/L (3.5-5.1); Sodium 139 mmol/L (136-145); Total Bilirubin 0.2 mg/dL (0.15-1.2); Total Protein 5.5 g/dL (6.6-8.7)
[2021-01-14 06:43] LABS: Glucose Point of Care 177 mg/dL (70-110)
--- NOTE | 2021-01-14 07:17 | PC.NURSE ---
Frequent safety and comfort rounds continue. Orders and/or nursing care completed as indicated. Patient monitored for response to intervention and treatment of nausea and htn. Education provided includes being npo for possible procedure.. Patient and/or customer account representative verbalize understanding. Will continue to monitor.
--- NOTE | 2021-01-14 07:18 | PC.NURSE ---
Patient states that he is not diabetic. Asked md about wanting fingersticks. Fingersticks not ordered.
[2021-01-14] MEDS: aspirin 81 mg EC Tablet PO (09:48)
[2021-01-14] MEDS: atorvastatin 40 mg Tablet PO (09:48)
[2021-01-14] MEDS: cholecalciferol (vitamin D3) 5,000 unit Tablet 5000 UNIT PO (09:48)
[2021-01-14] MEDS: metoprolol succinate ER (24 HR) 50 mg Tablet PO ×2 (09:48→21:12)
[2021-01-14] MEDS: insulin glargine 100 units/1 mL 30 UNIT SUBCUT ×2 (09:49→21:12)
[2021-01-14] MEDS: diphenhydrAMINE 50 mg Capsule PO (09:51)
[2021-01-14] MEDS: sodium chloride 0.9% 1,000 ML 50 ML IV (09:52)
--- NOTE | 2021-01-14 10:00 | XACV_ITS ---
Exam Room: [facility] Ht: 173 cm Wt: 129 kg BSA: 2.56 m2 Gender: Male : 1975 Any Known Allergies: Other Exam Priority: Routine Procedure(s): Procedure Description: Diagnostic procedure Procedure Description: Left Heart Catheterization Procedure Description: Left ventriculography Procedure Description: Coronary Angiography Emiliano MCGEE; Diagnostic Cath Status: Elective Diagnostic Findings * Left Main has no disease. * Mid Left Anterior Descending: critical 95% stenosis, DANYELLE: 3 flow. * Distal Left Anterior Descending: significant 80% stenosis, DANYELLE: 3 flow. * Mid Right Coronary Artery: severe 90% stenosis, DANYELLE: 3 flow. * Distal Right Coronary Artery: severe 90% stenosis, DANYELLE: 3 flow. * Proximal Circumflex: severe 90% stenosis, DANYELLE: 3 flow. * 1st Diagonal: severe 90% stenosis, DANYELLE: 3 flow. * Posterior Descending Right: severe 90% stenosis, DANYELLE: 3 flow. * Coronary angiography shows right dominance. Conclusions 1. There is critical coronary artery disease with three vessel disease. 2. The apex, mid posterior, mid septum, mid inferior davila are hypokinetic. 3. All other visualized davila normal. 4. Mild left ventricular systolic dysfunction. Ejection fraction of 40%. 5. LCX is no dominant small caliber vessel may not need graft. 6. Patient has bifurcating 7. severe disease of LAD and 8. diagonal. 9. Previously placed LAD stent has proximal 10. edge 11. severe in-stent restenosis. 12. Stent was placed 13. 8-year ago. Recommendations * 1-Return to [facility] for close monitoring and routine care 2-Continue anticoagulation as per ACS protocol 3-Hold Plavix for possible CABG 4-Statin with LDL goal of 70 mg/dl, aspirin 81 mg p.o. daily for life long 5-CT surgery consults for CABG 6-Optimal medical management for AK 7-Follow up with Dr. Lino in four weeks and establish care with primary care physician. Diagnostic RX Recommendation: CABG LV EDP: 20 mmHg Ventriculography Ejection Fraction: 40.0 % Pressures Phase:Rest AO : 116 / 93 ( 105 ) @ 10:08:00 AM 118 / 94 ( 107 ) @ 10:08:00 AM 120 / 91 ( 106 ) @ 10:09:00 AM 136 / 84 ( 107 ) @ 10:14:00 AM 134 / 84 ( 105 ) @ 10:14:00 AM LV : 140 / 5 / 20 @ 10:13:00 AM 143 / 5 / 27 @ 10:14:00 AM 142 / 6 / 28 @ 10:14:00 AM Valves Phase:DefaultPhase AV : 6.0 @ 12:22:06 PM AV Mean Gradient: 10.0 @ 12:22:06 PM Clinical Evaluation EBL: 5mL-10mL Procedural Details Procedure Consent Obtained. Current Diagnosis : NSTEMI. Pre-Procedure Time Out. Identified patient by full name and date of as verbalized by the patient/guarantor. Does the consent match the physician's order: Yes. Accurate & Complete Informed Consent: Yes. Inpatient/Outpatient History & Physical on Chart: Yes. If H&P is completed, is and addenduem needed: No; If yes, is the addendum complete: N/A. Visualize and Verify Site with Patient/Guarantor: N/A. Relevant Radiology Images available: Yes. Pre-op teaching completed and patient verbalized understanding. The risks, benefits, and alternatives of sedation and/or procedure were discussed by physician. The patient agrees to continue. Procedure started. [facility] Clinical Fraility Score: 3: Managing Well. Iron Plastic Bullet Maker Indications: ACS > 24 hours. Chest Pain Symptom Assessment: Typical Angina Symptoms. Correct patient, site and procedure confirmed by cath team. Current diagnosis: NSTEMI. PERRLA. Strong, equal hand documentation improvement specialist bilaterally. Lungs clear x 5 lobes. IV Site on Arrival: 18 gauge in the left anticubital. IV Fluids: 0.9% NaCl at KVO. 0 mL infused prior to open hearth furnace laborer. Pre Procedural Pulses: right radial was 3+. Oxygen started at 2liters/min via nasal canula. right groin was prepped with chloroprep then draped in the usual sterile fashion. right radial was prepped with chloroprep then draped in the usual sterile fashion. Baseline sample Acquired. HR: 0 BPM. Physician notified. Physician arrived. Physician scrubbed in. Immediate Pre-Procedure Time Out. Correct Patient: Yes; Correct Procedure: Yes; Correct Site: Yes; Correct Patient Position: Yes; Correct Supplies: Yes; Dried Flammable Prep: Yes; Blood Products Available: N/A;. Lidocaine 1% infiltrated to the right radial. Arterial access obtained. A 5 sami TIG catheter in over wire. Multiple views taken of left coronary artery. Catheter redirected to the RCA. Multiple views taken of right coronary artery. Catheter removed over the exchange wire. Dr. Lino called to review films. EDP Sample taken: LV 140/5,20; HR: 87 BPM; SpO2: 96%. LV gram performed in [place] @ 10 mL/second for a total of 30 mL. EDP Sample taken: LV 143/5,27; HR: 74 BPM; SpO2: 97%. Pullback taken: LV 142/6,28; AO 136/84(107); Mean: 10mmHg, Peak to Peak: 6mmHg, SEP: 6sec/min; HR: 85 BPM; SpO2: 97%. A TR Band was successful obtaining hemostatsis at the Right Radial artery insertion site. Post Procedure: Pulses reassessed and unchanged. PERRLA. Strong, equal hand documentation improvement specialist bilaterally. No VTE prophylaxis required. Medication's Wasted: Lidocaine 1% = 18 mL. Medication's Wasted: Nitro = 49.8 mg. Medication's Wasted: Heparin = 1000units. Total IV fluids: 25 mL. Contrast type used: Visipaque 320 mgI/mL, 500 mL bottle. Post-op diagnosis: CAD. Complications: None. Estimated blood loss: 5mL-10mL. Procedure completed. Patient transferred by wheelchair to 1st floor. Vital chart was stopped. Access Site Site: Right Radial artery Sheath Size: 6 Fr Hemostasis Method: TR Band Hemostasis Success: Successful Procedure Medications Start: 11:57 AM Stop: 11:57 AM Medication: Plavix Amount: 600 mg Route: P.O. Start: 11:58 AM Stop: 11:58 AM Medication: Versed Amount: 1 mg Route: I.V. Start: 11:58 AM Stop: 11:58 AM Medication: Fentanyl Amount: 50 mcg Route: I.V. Start: 12:03 PM Stop: 12:03 PM Medication: Versed Amount: 1 mg Route: I.V. Start: 12:03 PM Stop: 12:03 PM Medication: Fentanyl Amount: 50 mcg Route: I.V. Start: 12:03 PM Stop: 12:03 PM Medication: Nitrogylcerin Amount: 200 mcg Route: I.A. Start: 12:06 PM Stop: 12:06 PM Medication: Heparin Amount: 5000 units Route: I.V. I, the attending physician, have reviewed and verified all procedure medications. Yes, all medications given per verbal order History/Risk Factors Hypertension: Yes Dyslipidemia: Yes Peripheral Arterial Disease (PAD): No Myocardial Infarction (AK): No Obesity: No Renal Disease: No Prior Interventions PCI: Yes CABG: No Valve Surgery: No Date of PCI: 06/03/2013 Report Signatures Amended by Annmarie Cummings MD on 01/14/2021 12:52 PM Finalized by Annmarie Cummings MD on 01/14/2021 12:49 PM
--- NOTE | 2021-01-14 11:47 | W.PM.OPSUD ---
Surgery/Procedure H&P Update DATE OF PROCEDURE: January 14, 2021 DATE H&P PERFORMED: 01/09/21 H&P UPDATE INFORMATION: I have reviewed H&P completed within last 30 days, I have examined patient prior to procedure and No changes to prior documentation PREOP DIAGNOSIS: New onset of left ventricle dysfunction, severely depressed EF, non-STEMI PLANNED PROCEDURE: Operation Date: 01/14/21 10:00 Proposed Procedures p Cardiac Catheterization(Left) - Annmarie Cummings MD PATIENT REASSESSED PRIOR TO SEDATION, WITH NO CHANGE NOTED: Yes PHYSICAL EXAM: alert, oriented x 3 and clear to auscultation bilaterally AIRWAY EVAL/ANESTHESIA PLAN: ASA II and Risks, benefits & alternatives of sedation and/or procedure discussed
[2021-01-14 11:48] LABS: Glucose Point of Care 209 mg/dL (70-110)
--- NOTE | 2021-01-14 13:00 | PC.NURSE ---
Pt returned from landscape and yardwork laborer to room 105 at approximately 1235. Pt has TR Band on right wrist. No swelling hematoma or bleeding noted. Pt had no c/o pain or discomfort at the present time. No Needs voiced. Call light in reach. Will continue to monitor.
--- NOTE | 2021-01-14 15:09 | P.PN_ITS ---
Subjective Subjective: Interval history: Patient underwent LHC today and was found to have multivessel CAD Medications: Reviewed: Yes Vitals/I&O/Wt Last Vital Signs Temp 97.7 F 01/14/21 11:16 Pulse 87 01/14/21 14:45 Resp 0 L 01/14/21 14:45 BP 132/87 01/14/21 14:45 Pulse Ox 92 01/14/21 14:45 Weight last 48 hrs Weight 242 lb 7 oz Weight 242 lb 0.7 oz Weight 285 lb 8 oz Physical Exam Narrative: EXAM NARRATIVE: GENERAL: Obese man sitting by side of bed dry heaving HEENT: Pupils equal round reactive to light. No pallor or icterus. NECK: No JVD, No carotid bruit. CARDIOVASCULAR SYSTEM: S1-S2 regular. Tachycardia present no murmurs heard. RESPIRATORY SYSTEM: Chest clear to auscultation. No wheezes rhonchi or rubs heard. EXTREMITIES: No cyanosis or clubbing. No edema. LIME PULLER: Patient is alert oriented ?3. No focal neurological deficits. Data : 01/13/21 04:02 01/14/21 04:23 Micro: Microbiology 01/13/21 10:22 Bacterial Antigens - Final Urine,Voided 01/13/21 10:22 Legionella Urinary Antigen - Final Urine,Clean Catch A&P Assessment and plan (1) NSTEMI (non-ST elevated myocardial infarction): -Cannot completely ruled out type I non-ST elevation VA; he tells me today that his symptoms with prior VA were nausea as well. He did not have any chest discomfort even back then. He gives strong family history of CAD with dad with bypass in his 30s and his 6 siblings all with problems in their 30s. history of high cholesterol in family (?familial hyperlipidemia). -Echocardiogram with moderately decreased LV function with moderate to severe hypokinesis of mid to apical anterior, mid anteroseptal and apical daivla. -Given patient's history of noncompliance and no imaging since 2013, it is difficult to say if these regional wall motion abnormalities are new. -Continue aspirin, statin Lovenox and metoprolol. -He had left heart cathetarization with Dr. Cummings via right radial today and was found to have multivessel CAD. Patient received Plavix 600 mg x 1 prior to cardiac catheterization -Patient and had expressed desire to be transferred to an outside hospital for CABG if the situation arises even prior to left heart cath. After discussion with patient and his , decision was made to transfer patient to [facility]. -Dr. Gatito Artis accepted the patient. Plan to transfer as soon as bed becomes available Status: Acute (2) Multi-vessel coronary artery stenosis: h/o Px LAD and D1 stent Status: Acute (3) Ischemic cardiomyopathy: Heart failure with reduced ejection fraction (LVEF equal to 30-35%); clinically appears euvolemic. Status: Acute Additional A&P Information Hypertension Diabetes mellitus Gastroesophageal reflux disease DKA-resolved COVID-19 PNA- diagnosed >2 weeks ago, off isolation Thank you for allowing me to participate in patient's care. Please feel free to call with questions or concerns. Attestations Medical Necessity Statement*: Patient care transferred to [facility] Time Spent in Patient Care: 16 - 35 minutes (>than 50% of time spent in counselling and/or direct pt care on unit) . Coding Level of Care Code Acute Marketing Automation Specialist for Abril Fwd Diagnoses NSTEMI (non-ST elevated myocardial infarction) I21.4 Multi-vessel coronary artery stenosis I25.10 Ischemic cardiomyopathy I25.5
[2021-01-14 16:25] LABS: Glucose Point of Care 357 mg/dL (70-110)
--- NOTE | 2021-01-14 16:59 | P.PN_ITS ---
Subjective Subjective: Interval history: Patient was seen this morning, he is awaiting his cardiac catheterization, no complaints overnight, no chest pain, no shortness of breath, no lightheadedness, no dizziness, no nausea, no vomiting Vitals/I&O/Wt Last Vital Signs Temp 97.6 F 01/14/21 15:56 Pulse 89 01/14/21 15:56 Resp 21 H 01/14/21 15:56 BP 140/88 01/14/21 15:56 Pulse Ox 95 01/14/21 15:56 Weight last 48 hrs Weight 109.968 kg Weight 109.789 kg Weight 129.501 kg Physical Exam Const: COMMON NORMALS: no acute distress and patient oriented x3 Resp: COMMON NORMALS: normal respiratory effort, No retractions, No use of accessory muscles and clear to auscultation bilaterally AUSCULTATION: clear to auscultation bilaterally Cardio: COMMON NORMALS: regular rate, regular rhythm, S1 normal heart sound present and S2 normal heart sound present RATE: regular rate RHYTHM: regular rhythm HEART SOUNDS: S1 normal heart sound present and S2 normal heart sound present GI: COMMON NORMALS: Normal to inspection, nondistended, normoactive bowel sounds present, Soft to palpation and non-tender PALPATION: Yes Soft to palpation Extremity: COMMON NORMALS: no pedal edema Neuro: COMMON NORMALS: patient oriented x3 Psych: COMMON NORMALS: mental status grossly normal Data : 01/13/21 04:02 01/14/21 04:23 Micro: Microbiology 01/13/21 10:22 Bacterial Antigens - Final Urine,Voided 01/13/21 10:22 Legionella Urinary Antigen - Final Urine,Clean Catch A&P Assessment and plan (1) NSTEMI (non-ST elevated myocardial infarction): Likely type II NSTEMI , possible viral myocarditis, cannot conclusively rule out type I NSTEMI. 45-year-old male with past medical history of hypertension , diabetes coronary artery disease status post stent, currently complaining of epigastric discomfort, which according to him happens whenever he has upset stomach. Troponin trend: With significant delta , EKG: Without any acute ST-T wave irby ges. X-ray chest: Bilateral patchy groundglass opacity within the mid lower hemithoraces bilaterally. compatible with a bilateral interstitial pneumonia. 2D echo: Dilated LV cavity, moderately decreased LV systolic function, LVEF 30 to 35%, moderate to severe hypokinesis of mid to apical anterior, mid anteroseptal and all apical davila. Grade II diastolic dysfunction, moderately elevated filling pr essures. Continue aspirin, statin, beta-amish and therapeutic anticoagulation.Sublingual nitro as needed. Continue to monitor on telemetry Continue aspirin, statin, therapeutic Lovenox, metoprolol Appreciate cardiology input., plan for cardiac catheterization today Status: Acute (2) COVID-19: S/p antibody infusion Medically managing Status: Acute (3) DKA (diabetic ketoacidosis): Was On DKA protocol. Anion gap is closed: Currently on Lantus and sliding scale insulin Carbohydrate consistent diet HbA1c:15.1 Status: Acute Qualifiers: Diabetes mellitus type: type 2 (4) Hyponatremia: Status: Acute Additional A&P Information 45-year-old male with past medical history of type 2 diabetes, not on insulin who is presenting with shortness of breath and cough. The patient is recently diagnosed with COVID-19 pneumonia. Status post monoclonal antibody infusion. Not on any specific treatments for Covid. Emergency room he is found to have severe DKA. No respiratory distress or hypoxia. CODE STATUS. He wants to be full code. The plan of care was discussed with the patient and his . They verbalized understanding and agreement. Attestations Medical Necessity Statement*: Patient requires hospitalization for NSTEMI, proceeding to cardiac catheterization Coding Level of Care Code Acute Slitter And Cutter Operator for [facility] Heydi Diagnoses NSTEMI (non-ST elevated myocardial infarction) I21.4 COVID-19 U07.1 DKA (diabetic ketoacidosis) E11.10 Diabetes mellitus type: type 2 Hyponatremia E87.1
[2021-01-14] MEDS: insulin lispro 100 unit/1 mL SUBCUT ×2 (17:06→21:13)
[2021-01-14] MEDS: cefTRIAXone 1,000 MG in sodium chloride 0.9% (plus) 50 ML 100 MG IV (17:07)
[2021-01-14] MEDS: insulin lispro 100 unit/1 mL 10 UNIT SUBCUT (17:07)
--- NOTE | 2021-01-14 18:00 | PC.NURSE ---
TR Band removed. Pt tolerated well. Pt had no c/o pain or discomfort at the present time. No needs voiced. Call light in reach.
[2021-01-14 20:04] LABS: Glucose Point of Care 288 mg/dL (70-110)
[2021-01-15] VITALS (11 sets, daily range): BP systolic 105–146; BP diastolic 65–95; PULSE 74–89; RESP 12–24; TEMP 35.7–37.1; O2SAT 92–97
[2021-01-15 02:55] LABS: Basophils % 0.5 %; Eosinophils # 0.1 10^3/uL (0.0-0.8); Eosinophils % 1.8 %; Hematocrit 33.6 % (42.0-52.0); Hemoglobin 10.8 g/dL (11.7-16.6); Lymphocytes # 1.9 10^3/uL (0.8-4.8); Lymphocytes % 32.5 %; Mean Corpuscular HGB Conc 32.1 g/dL (30.0-36.0); Mean Corpuscular Hemoglobin 29.6 pg (28.0-34.0); Mean Corpuscular Volume 92.1 fl (80-94); Mean Platelet Volume 10.2 fL (7.4-10.4); Monocytes # 0.8 10^3/uL (0.2-0.9); Monocytes % 13.7 %; Neutrophils # 2.87 10^3/uL (1.8-7.7); Neutrophils % 50.4 %; Nucleated Red Blood Cells % 0 %; Platelet Count 259 10^3/cmm (130-400); Red Blood Count 3.65 10^6/uL (4.1-5.3); Red Cell Distribution Width 11.8 % (12.1-15.1); White Blood Count 5.7 10^3/uL (4.0-10.0)
[2021-01-15 03:18] LABS: Anion Gap 15.6 (5-19); Blood Urea Nitrogen 17 mg/dL (6-20); Carbon Dioxide 24 mmol/L (22-29); Chloride 103 mmol/L (98-107); Glucose 150 mg/dL (65-115); Osmolality Calculated 292 mOsm/kg (285-295); Potassium 3.6 mmol/L (3.5-5.1); Sodium 139 mmol/L (136-145)
[2021-01-15] MEDS: famotidine 20 mg/2 mL INJ IVP ×2 (04:13→16:27)
[2021-01-15 06:30] LABS: Glucose Point of Care 149 mg/dL (70-110)
[2021-01-15 07:01] LABS: Slide Review Slide Review Perform
[2021-01-15] MEDS: enoxaparin 120 mg/0.8 mL Syringe 110 MG SUBCUT ×2 (08:23→20:50)
[2021-01-15] MEDS: cholecalciferol (vitamin D3) 5,000 unit Tablet 5000 UNIT PO (08:24)
[2021-01-15] MEDS: atorvastatin 40 mg Tablet 80 MG PO (08:25)
[2021-01-15] MEDS: insulin lispro 100 unit/1 mL SUBCUT ×4 (08:26→20:51)
[2021-01-15] MEDS: metoprolol succinate ER (24 HR) 50 mg Tablet PO ×2 (08:26→20:50)
[2021-01-15] MEDS: insulin glargine 100 units/1 mL 30 UNIT SUBCUT ×2 (09:12→20:52)
[2021-01-15] MEDS: aspirin 325 mg EC Tablet PO (09:12)
[2021-01-15 11:58] LABS: Glucose Point of Care 287 mg/dL (70-110)
--- NOTE | 2021-01-15 12:13 | P.PN_ITS ---
Subjective Subjective: Interval history: No new complaints. awaiting bed at [place]. Medications: Reviewed: Yes Vitals/I&O/Wt Last Vital Signs Temp 97.7 F 01/15/21 08:11 Pulse 88 01/15/21 08:30 Resp 16 01/15/21 08:30 BP 105/65 01/15/21 08:11 Pulse Ox 92 01/15/21 08:30 01/14/21 01/15/21 01/15/21 22:59 06:59 14:59 Intake Total 345 / 345 Balance 345 / 345 Weight last 48 hrs Weight 259 lb 4.8 oz Weight 242 lb 7 oz Weight 242 lb 0.7 oz Physical Exam Narrative: EXAM NARRATIVE: GENERAL: Obese man sitting by side of bed dry heaving HEENT: Pupils equal round reactive to light. No pallor or icterus. NECK: No JVD, No carotid bruit. CARDIOVASCULAR SYSTEM: S1-S2 regular. No murmurs heard. RESPIRATORY SYSTEM: Chest clear to auscultation. No wheezes rhonchi or rubs heard. EXTREMITIES: No cyanosis or clubbing. No edema. BLADE BALANCER: Patient is alert oriented ?3. No focal neurological deficits. Data : 01/15/21 02:23 01/15/21 02:23 A&P Assessment and plan (1) NSTEMI (non-ST elevated myocardial infarction): -Cannot completely ruled out type I non-ST elevation MT; he tells me today that his symptoms with prior MT were nausea as well. He did not have any chest discomfort even back then. He gives strong family history of CAD with dad with bypass in his 30s and his 6 siblings all with problems in their 30s. history of high cholesterol in family (?familial hyperlipidemia). -Echocardiogram with moderately decreased LV function with moderate to severe hypokinesis of mid to apical anterior, mid anteroseptal and apical davila. -Given patient's history of noncompliance and no imaging since 2013, it is difficult to say if these regional wall motion abnormalities are new. -Continue aspirin, statin Lovenox and metoprolol. -He had left heart cathetarization with Dr. Cummings via right radial today and was found to have multivessel CAD. Patient received Plavix 600 mg x 1 prior to cardiac catheterization -Patient and had expressed desire to be transferred to an outside hospital for CABG if the situation arises even prior to left heart cath. After discussion with patient and his , decision was made to transfer patient to [facility]. -Dr. Gatito Artis accepted the patient. Plan to transfer as soon as bed becomes available Status: Acute (2) Multi-vessel coronary artery stenosis: h/o Px LAD and D1 stent Status: Acute (3) Ischemic cardiomyopathy: Heart failure with reduced ejection fraction (LVEF equal to 30-35%); clinically appears euvolemic. -continue metoprolol. -start on low dose ARB Status: Acute Additional A&P Information Hypertension Diabetes mellitus Gastroesophageal reflux disease DKA-resolved COVID-19 PNA- diagnosed >2 weeks ago, off isolation Thank you for allowing me to participate in patient's care. Please feel free to call with questions or concerns. Attestations Medical Necessity Statement*: Patient waiting for a bed at [facility] Time Spent in Patient Care: 16 - 35 minutes (>than 50% of time spent in counselling and/or direct pt care on unit) . Coding Level of Care Code Acute Rock Mason Apprentice for Abril Weber Diagnoses NSTEMI (non-ST elevated myocardial infarction) I21.4 Multi-vessel coronary artery stenosis I25.10 Ischemic cardiomyopathy I25.5
[2021-01-15] MEDS: insulin lispro 100 unit/1 mL 10 UNIT SUBCUT ×2 (12:14→17:35)
--- NOTE | 2021-01-15 12:55 | PM.PN ---
Subjective Subjective: Interval history: Patient was seen this morning, he was found to have multivessel CAD, is waiting transfer to [facility] for CABG, currently denies any chest pain, no shortness of breath, no lightheadedness, dizziness Medications: Reviewed: Yes Vitals/I&O/Wt Last Vital Signs Temp 97.7 F 01/15/21 08:11 Pulse 88 01/15/21 08:30 Resp 16 01/15/21 08:30 BP 105/65 01/15/21 08:11 Pulse Ox 92 01/15/21 08:30 01/14/21 01/15/21 01/15/21 22:59 06:59 14:59 Intake Total 345 / 345 Balance 345 / 345 Weight last 48 hrs Weight 117.617 kg Weight 109.968 kg Weight 109.789 kg Physical Exam Const: COMMON NORMALS: no acute distress and patient oriented x3 Resp: COMMON NORMALS: normal respiratory effort, No retractions, No use of accessory muscles and clear to auscultation bilaterally AUSCULTATION: clear to auscultation bilaterally Cardio: COMMON NORMALS: regular rate, regular rhythm, S1 normal heart sound present and S2 normal heart sound present RATE: regular rate RHYTHM: regular rhythm HEART SOUNDS: S1 normal heart sound present and S2 normal heart sound present GI: COMMON NORMALS: Normal to inspection, nondistended, normoactive bowel sounds present, Soft to palpation and non-tender PALPATION: Yes Soft to palpation Extremity: COMMON NORMALS: no pedal edema Neuro: COMMON NORMALS: patient oriented x3 Psych: COMMON NORMALS: mental status grossly normal Data : 01/15/21 02:23 01/15/21 02:23 A&P Assessment and plan (1) NSTEMI (non-ST elevated myocardial infarction): 45-year-old male with past medical history of hypertension , diabetes coronary artery disease status post stent, currently complaining of epigastric discomfort, which according to him happens whenever he has upset stomach. Troponin trend: With significant delta , EKG: Without any acute ST-T wave changes. X-ray chest: Bilateral patchy groundglass opacity within the mid lower hemithoraces bilaterally. compatible with a bilateral interstitial pneumonia. 2D echo: Dilated LV cavity, moderately decreased LV systolic function, LVEF 30 to 35%, moderate to severe hypokinesis of mid to apical anterior, mid anteroseptal and all apical davila. Grade II diastolic dysfunction, moderately elevated filling pressures. Underwent cardiac catheterization showing multivessel CAD Being transferred to [facility] for CABG Continue aspirin, statin, beta-amish and therapeutic Lovenox Continue to monitor on telemetry Appreciate cardiology input Status: Acute (2) COVID-19: S/p antibody infusion Medically managing Status: Acute (3) DKA (diabetic ketoacidosis): Was On DKA protocol. Anion gap is closed: Currently on Lantus and sliding scale insulin Carbohydrate consistent diet HbA1c:15.1 Status: Acute Qualifiers: Diabetes mellitus type: type 2 (4) Hyponatremia: Status: Acute Additional A&P Information 45-year-old male with past medical history of type 2 diabetes, not on insulin who is presenting with shortness of breath and cough. The patient is recently diagnosed with COVID-19 pneumonia. Status post monoclonal antibody infusion. Not on any specific treatments for Covid. Emergency room he is found to have severe DKA. No respiratory distress or hypoxia. CODE STATUS. He wants to be full code. The plan of care was discussed with the patient and his . They verbalized understanding and agreement. Attestations Medical Necessity Statement*: Patient requires hospitalization for NSTEMI, awaiting transfer for CABG Coding Level of Care Code Acute Reservoir Engineering Consultant for [facility] Gus Diagnoses NSTEMI (non-ST elevated myocardial infarction) I21.4 COVID-19 U07.1 DKA (diabetic ketoacidosis) E11.10 Diabetes mellitus type: type 2 Hyponatremia E87.1
[2021-01-15 16:38] LABS: Glucose Point of Care 253 mg/dL (70-110)
--- NOTE | 2021-01-15 19:37 | PC.NURSE ---
[facility] called and requested covid test results.gerri ([facility] navigator) states that pt will have to be on covid isolation until january 28...from jan 07 covid test results.this means that bed availability has changed at present...as pt must be admitted to an isolation unit...not a regular cardiac unit.gerri states she will call [facility] to request covid test results.pt had no chest pain today.
--- NOTE | 2021-01-15 19:52 | PC.NURSE ---
[facility] navigator gerri..phone number :
[2021-01-16] VITALS (10 sets, daily range): BP systolic 126–156; BP diastolic 79–92; PULSE 73–89; RESP 16–28; TEMP 36–36.9; O2SAT 94–96
[2021-01-16] MEDS: famotidine 20 mg/2 mL INJ IVP ×2 (03:45→17:48)
--- NOTE | 2021-01-16 05:05 | PC.NURSE ---
patient still pending transfer to [facility] waiting room availablilty.
[2021-01-16 05:40] LABS: Basophils % 0.5 %; Eosinophils # 0.1 10^3/uL (0.0-0.8); Eosinophils % 2.5 %; Hematocrit 32.7 % (42.0-52.0); Hemoglobin 10.4 g/dL (11.7-16.6); Lymphocytes # 2.2 10^3/uL (0.8-4.8); Mean Corpuscular HGB Conc 31.8 g/dL (30.0-36.0); Mean Corpuscular Hemoglobin 29.8 pg (28.0-34.0); Mean Corpuscular Volume 93.7 fl (80-94); Mean Platelet Volume 10.5 fL (7.4-10.4); Monocytes # 0.9 10^3/uL (0.2-0.9); Monocytes % 15.3 %; Neutrophils # 2.45 10^3/uL (1.8-7.7); Nucleated Red Blood Cells % 0 %; Platelet Count 258 10^3/cmm (130-400); Red Blood Count 3.49 10^6/uL (4.1-5.3); Red Cell Distribution Width 11.8 % (12.1-15.1); White Blood Count 5.7 10^3/uL (4.0-10.0)
[2021-01-16 06:04] LABS: Alanine Aminotransferase 32 U/L (0-41); Albumin Level 2.5 g/dL (3.5-5.2); Alkaline Phosphatase 94 IU/L (40-130); Aspartate Amino Transferase 21 U/L (0-40); Blood Urea Nitrogen 17 mg/dL (6-20); Calcium 8.4 mg/dL (8.5-10.5); Carbon Dioxide 30 mmol/L (22-29); Chloride 103 mmol/L (98-107); Globulin 2.8 g/dL (1.3-4.6); Glucose 101 mg/dL (65-115); Magnesium 1.7 mg/dL (1.7-2.3); Osmolality Calculated 294 mOsm/kg (285-295); Phosphorus 3.2 mg/dL (2.5-4.5); Sodium 141 mmol/L (136-145); Total Bilirubin 0.2 mg/dL (0.15-1.2); Total Protein 5.3 g/dL (6.6-8.7)
[2021-01-16 06:06] LABS: Anion Gap 11.9 (5-19); Potassium 3.9 mmol/L (3.5-5.1)
[2021-01-16 06:31] LABS: Glucose Point of Care 100 mg/dL (70-110)
[2021-01-16 06:43] LABS: Slide Review Slide Review Perform
[2021-01-16] MEDS: atorvastatin 40 mg Tablet 80 MG PO (09:15)
[2021-01-16] MEDS: enoxaparin 120 mg/0.8 mL Syringe 110 MG SUBCUT ×2 (09:15→20:36)
[2021-01-16] MEDS: losartan 50 mg Tablet 25 MG PO (09:16)
[2021-01-16] MEDS: metoprolol succinate ER (24 HR) 50 mg Tablet PO ×2 (09:16→20:36)
[2021-01-16] MEDS: cholecalciferol (vitamin D3) 5,000 unit Tablet 5000 UNIT PO (09:16)
[2021-01-16] MEDS: aspirin 325 mg EC Tablet PO (09:16)
[2021-01-16 09:28] LABS: Glucose Point of Care 189 mg/dL (70-110)
[2021-01-16] MEDS: insulin glargine 100 units/1 mL 30 UNIT SUBCUT ×2 (10:22→20:37)
[2021-01-16 12:12] LABS: Glucose Point of Care 286 mg/dL (70-110)
--- NOTE | 2021-01-16 12:40 | PM.PN ---
Subjective Subjective: Interval history: No new complaints. awaiting bed at [place] again today. Medications: Reviewed: Yes Vitals/I&O/Wt Last Vital Signs Temp 97.8 F 01/16/21 07:30 Pulse 89 01/16/21 08:40 Resp 16 01/16/21 08:40 BP 133/86 01/16/21 09:16 Pulse Ox 95 01/16/21 08:40 01/15/21 01/16/21 01/16/21 22:59 06:59 14:59 Intake Total 240 / 585 150 / 735 Output Total 500 / 1300 Balance 240 / -215 -350 / -565 Weight last 48 hrs Weight 259 lb 11.2 oz Weight 259 lb 4.8 oz Physical Exam Narrative: EXAM NARRATIVE: GENERAL: Obese man sitting by side of bed dry heaving HEENT: Pupils equal round reactive to light. No pallor or icterus. NECK: No JVD, No carotid bruit. CARDIOVASCULAR SYSTEM: S1-S2 regular. No murmurs heard. RESPIRATORY SYSTEM: Chest clear to auscultation. No wheezes rhonchi or rubs heard. EXTREMITIES: No cyanosis or clubbing. No edema. No significant bruising or hematoma NATUROPATH: Patient is alert oriented ?3. No focal neurological deficits. Data : 01/16/21 04:20 01/16/21 04:20 A&P Assessment and plan (1) NSTEMI (non-ST elevated myocardial infarction): -Cannot completely ruled out type I non-ST elevation SC; he tells me today that his symptoms with prior SC were nausea as well. He did not have any chest discomfort even back then. He gives strong family history of CAD with dad with bypass in his 30s and his 6 siblings all with problems in their 30s. history of high cholesterol in family (?familial hyperlipidemia). -Echocardiogram with moderately decreased LV function with moderate to severe hypokinesis of mid to apical anterior, mid anteroseptal and apical davila. -Given patient's history of noncompliance and no imaging since 2013, it is difficult to say if these regional wall motion abnormalities are new. -Continue aspirin, statin Lovenox and metoprolol. -He had left heart cathetarization with Dr. Cummings via right radial today and was found to have multivessel CAD. Patient received Plavix 600 mg x 1 prior to cardiac catheterization -Patient and had expressed desire to be transferred to an outside hospital for CABG if the situation arises even prior to left heart cath. After discussion with patient and his , decision was made to transfer patient to [facility]. -Dr. Gatito Artis accepted the patient. Plan to transfer as soon as bed becomes available. -I checked with [facility] in [place] as well but no beds available. Status: Acute (2) Multi-vessel coronary artery stenosis: h/o Px LAD and D1 stent Status: Acute (3) Ischemic cardiomyopathy: Heart failure with reduced ejection fraction (LVEF equal to 30-35%); clinically appears euvolemic. -continue metoprolol and low dose ARB Status: Acute Additional A&P Information Hypertension Diabetes mellitus Gastroesophageal reflux disease DKA-resolved COVID-19 PNA- diagnosed >2 weeks ago, off isolation Thank you for allowing me to participate in patient's care. Please feel free to call with questions or concerns. Attestations Medical Necessity Statement*: Patient waiting for a bed at [facility] for CABG for multivessel CAD Time Spent in Patient Care: 16 - 35 minutes (>than 50% of time spent in counselling and/or direct pt care on unit). Coding Level of Care Code Acute Mental Hygienist for g Fwd Diagnoses NSTEMI (non-ST elevated myocardial infarction) I21.4 Multi-vessel coronary artery stenosis I25.10 Ischemic cardiomyopathy I25.5
[2021-01-16] MEDS: insulin lispro 100 unit/1 mL 10 UNIT SUBCUT ×2 (12:48→17:47)
--- NOTE | 2021-01-16 13:18 | PM.PN ---
Subjective Subjective: Interval history: Patient was seen this morning, he is a bit anxious about waiting so long for his CABG procedure, but understands that he wants to see Dr. Artis and [facility] who is one [place] the best [place], no acute events overnight Vitals/I&O/Wt Last Vital Signs Temp 97.8 F 01/16/21 07:30 Pulse 89 01/16/21 08:40 Resp 16 01/16/21 08:40 BP 133/86 01/16/21 09:16 Pulse Ox 95 01/16/21 08:40 01/15/21 01/16/21 01/16/21 22:59 06:59 14:59 Intake Total 240 / 585 150 / 735 Output Total 500 / 1300 Balance 240 / -215 -350 / -565 Weight last 48 hrs Weight 117.798 kg Weight 117.617 kg Physical Exam Const: COMMON NORMALS: no acute distress and patient oriented x3 Resp: COMMON NORMALS: normal respiratory effort, No retractions, No use of accessory muscles and clear to auscultation bilaterally AUSCULTATION: clear to auscultation bilaterally Cardio: COMMON NORMALS: regular rate, regular rhythm, S1 normal heart sound present and S2 normal heart sound present RATE: regular rate RHYTHM: regular rhythm HEART SOUNDS: S1 normal heart sound present and S2 normal heart sound present GI: COMMON NORMALS: Normal to inspection, nondistended, normoactive bowel sounds present, Soft to palpation and non-tender PALPATION: Yes Soft to palpation Extremity: COMMON NORMALS: no pedal edema Neuro: COMMON NORMALS: patient oriented x3 Psych: COMMON NORMALS: mental status grossly normal Data : 01/16/21 04:20 01/16/21 04:20 A&P Assessment and plan (1) NSTEMI (non-ST elevated myocardial infarction): 45-year-old male with past medical history of hypertension , diabetes coronary artery disease status post stent, currently complaining of epigastric discomfort, which according to him happens whenever he has upset stomach. Troponin trend: With significant delta , EKG: Without any acute ST-T wave changes. X-ray chest: Bilateral patchy groundglass opacity within the mid lower hemithoraces bilaterally. compatible with a bilateral interstitial pneumonia. 2D echo: Dilated LV cavity, moderately decreased LV systolic function, LVEF 30 to 35%, moderate to severe hypokinesis of mid to apical anterior, mid anteroseptal and all apical davila. Grade II diastolic dysfunction, moderately elevated filling pressures. Underwent cardiac catheterization showing multivessel CAD Being transferred to [facility] for CABG, awaiting bed Continue aspirin, statin, beta-amish and therapeutic Lovenox Continue to monitor on telemetry Appreciate cardiology input Status: Acute (2) COVID-19: S/p antibody infusion Medically managing Status: Acute (3) DKA (diabetic ketoacidosis): Was On DKA protocol. Anion gap is closed: Currently on Lantus and sliding scale insulin Carbohydrate consistent diet HbA1c:15.1 Status: Acute Qualifiers: Diabetes mellitus type: type 2 (4) Hyponatremia: Status: Acute Additional A&P Information 45-year-old male with past medical history of type 2 diabetes, not on insulin who is presenting with shortness of breath and cough. The patient is recently diagnosed with COVID-19 pneumonia. Status post monoclonal antibody infusion. Not on any specific treatments for Covid. Emergency room he is found to have severe DKA. No respiratory distress or hypoxia. CODE STATUS. He wants to be full code. The plan of care was discussed with the patient and his . They verbalized understanding and agreement. Attestations Medical Necessity Statement*: Patient requires hospitalization for NSTEMI Coding Level of Care Code Acute Steward/Stewardess Banquet for [facility] Gus Diagnoses NSTEMI (non-ST elevated myocardial infarction) I21.4 COVID-19 U07.1 DKA (diabetic ketoacidosis) E11.10 Diabetes mellitus type: type 2 Hyponatremia E87.1
[2021-01-16 16:16] LABS: Glucose Point of Care 268 mg/dL (70-110)
[2021-01-16] MEDS: insulin lispro 100 unit/1 mL SUBCUT ×2 (17:46→20:37)
--- NOTE | 2021-01-16 17:53 | PM.TDS ---
Transfer Summary Providers Date of Admission: 01/10/21 03:18 Date of Discharge: 01/16/21 Attending Provider at Admission: Santiago Chau Attending Provider at Transfer: Gabo Mcghee MD Anticipated Date of Transfer: Anticipated date of transfer: 01/16/21 Receiving Facility & Provider: Receiving Provider: [] Receiving facility: [] Diagnoses at Discharge Discharge Diagnosis (1) NSTEMI (non-ST elevated myocardial infarction): Status: Acute (2) Multi-vessel coronary artery stenosis: Status: Acute (3) Ischemic cardiomyopathy: Status: Acute Reason for Visit Reason for Visit: SOB, COVID +, COVID INFUSION ON WED Hospital Course Hospital Course NSTEMI (non-ST elevated myocardial infarction): 45-year-old male with past medical history of hypertension , diabetes coronary artery disease status post stent, currently complaining of epigastric discomfort, which according to him happens whenever he has upset stomach. Troponin trend: With significant delta , EKG: Without any acute ST-T wave changes. X-ray chest: Bilateral patchy groundglass opacity within the mid lower hemithoraces bilaterally. compatible with a bilateral interstitial pneumonia. 2D echo: Dilated LV cavity, moderately decreased LV systolic function, LVEF 30 to 35%, moderate to severe hypokinesis of mid to apical anterior, mid anteroseptal and all apical davila. Grade II diastolic dysfunction, moderately elevated filling pressures. Underwent cardiac catheterization showing multivessel CAD Being transferred to [facility] for CABG, awaiting bed Continue aspirin, statin, beta-amish and therapeutic Lovenox Continue to monitor on telemetry Physical Exam Const: COMMON NORMALS: no acute distress and patient oriented x3 Resp: COMMON NORMALS: normal respiratory effort, No retractions, No use of accessory muscles and clear to auscultation bilaterally AUSCULTATION: clear to auscultation bilaterally Cardio: COMMON NORMALS: regular rate, regular rhythm, S1 normal heart sound present and S2 normal heart sound present RATE: regular rate RHYTHM: regular rhythm HEART SOUNDS: S1 normal heart sound present and S2 normal heart sound present GI: COMMON NORMALS: Normal to inspection, nondistended, normoactive bowel sounds present, Soft to palpation and non-tender PALPATION: Yes Soft to palpation Extremity: COMMON NORMALS: no pedal edema Neuro: COMMON NORMALS: patient oriented x3 Psych: COMMON NORMALS: mental status grossly normal TS Data Data Completed and Pending: Completed Studies During Hospitalization Category Date Time Status [employer] request for service Routin e Exams 01/14/21 10:00 Completed XR chest 1V fiordaliza ble [id number] Urgent Exams 01/10/21 01:50 Completed CV. echo wo/w con trast [id number] Routin e Ultrasound 01/10/21 08:12 Completed Pending at discharge Category Date Time Status Complete Blood Co unt w/Auto AM LABS Lab 01/17/21 04:00 Ordered Complete Blood Co unt w/Auto AM LABS Lab 01/18/21 04:00 Ordered Comprehensive Met abolic Panel AM LA BS Lab 01/17/21 04:00 Ordered Comprehensive Met abolic Panel AM LA BS Lab 01/18/21 04:00 Ordered Magnesium AM LABS Lab 01/17/21 04:00 Ordered Magnesium AM LABS Lab 01/18/21 04:00 Ordered Phosphorus AM LAB S Lab 01/17/21 04:00 Ordered Phosphorus AM LAB S Lab 01/18/21 04:00 Ordered Labs from last 24 hours 01/16/21 01/16/21 01/16/21 16:09 12:07 09:22 WBC RBC Hgb Hct MCV MCH MCHC RDW Plt Count MPV Neut % (Auto) Lymph % (Auto) [place] % (Auto) Eos % (Auto) Baso % (Auto) Neut # (Auto) Lymph # (Auto) [place] # (Auto) Eos # (Auto) Baso # (Auto) Nucleated RBC % (a uto) Nucleated RBCs # Sodium Potassium Chloride Carbon Dioxide Anion Gap BUN Creatinine GFR Calculation Glucose POC Glucose 268 H 286 H 189 H Calculated Osmolal ity Calcium Phosphorus Magnesium Total Bilirubin AST ALT Alkaline Phosphata se Total Protein Albumin Globulin 01/16/21 01/16/21 01/16/21 06:15 04:20 04:20 WBC 5.7 RBC 3.49 L Hgb 10.4 L Hct 32.7 L MCV 93.7 MCH 29.8 MCHC 31.8 RDW 11.8 L Plt Count 258 MPV 10.5 H Neut % (Auto) 43.0 Lymph % (Auto) 38.0 [place] % (Auto) 15.3 Eos % (Auto) 2.5 Baso % (Auto) 0.5 Neut # (Auto) 2.45 Lymph # (Auto) 2.2 [place] # (Auto) 0.9 Eos # (Auto) 0.1 Baso # (Auto) 0.0 Nucleated RBC % (a uto) 0 Nucleated RBCs # 0.0 Sodium 141 Potassium 3.9 Chloride 103 Carbon Dioxide 30 H Anion Gap 11.9 BUN 17 Creatinine 0.5 L GFR Calculation 179.0 H Glucose 101 POC Glucose 100 Calculated Osmolal ity 294 Calcium 8.4 L Phosphorus 3.2 Magnesium 1.7 Total Bilirubin 0.2 AST 21 ALT 32 Alkaline Phosphata se 94 Total Protein 5.3 L Albumin 2.5 L Globulin 2.8 Vitals: Last Vital Signs Temp 97.8 F 01/16/21 07:30 Pulse 89 01/16/21 08:40 Resp 16 01/16/21 08:40 BP 133/86 01/16/21 09:16 Pulse Ox 95 01/16/21 08:40 TS Medications Medications Home Medications atorvastatin 80 mg PO DAILY 01/08/21 [History Confirmed 01/10/21] clopidogrel [Plavix] 75 mg PO DAILY 01/08/21 [History Confirmed 01/10/21] lisinopril 20 mg PO DAILY 01/08/21 [History Confirmed 01/10/21] metformin 1,000 mg PO BID 01/08/21 [History Confirmed 01/10/21] metoprolol tartrate 50 mg PO BID 01/08/21 [History Confirmed 01/10/21] pantoprazole 40 mg PO DAILY 01/08/21 [History Confirmed 01/10/21] aspirin 81 mg PO DAILY 01/10/21 [History Confirmed 01/10/21] Active Medications Al Hydrox/Mg Hydrox/Simethicone (Iglx-Syq-Dqyfpjzlb-Douglas 30 Ml Udc) 30 ml PO Q15M PRN PRN Reason: INDIGESTION Albuterol/Ipratropium (Ipratropium-Albuterol 3 Ml Neb) 3 ml INHALATION Q6H PRN PRN Reason: SHORTNESS OF BREATH Aspirin (Aspirin 325 Mg Ec Tablet) 325 mg PO DAILY [facility] Last Admin: 01/16/21 09:16 Dose: 325 mg Documented by: Atorvastatin Calcium (Atorvastatin 40 Mg Tablet) 80 mg PO DAILY [facility] Last Admin: 01/16/21 09:15 Dose: 80 mg Documented by: Atropine Sulfate (Atropine 1 Mg/Ml Sdv 1 Ml) 0.5 mg IVP PRN PRN PRN Reason: Symptomatic bradycardia Benzonatate (Benzonatate 100 Mg Capsule) 200 mg PO TID PRN PRN Reason: COUGH Last Admin: 01/11/21 11:38 Dose: 200 mg Documented by: Dextrose (Dextrose 50% Syringe 50 Ml) 25 ml IVP ONCE PRN; Protocol PRN Reason: hypoglycemia protocol Dextrose (Dextrose 50% Syringe 50 Ml) 50 ml IVP PRN PRN; Protocol PRN Reason: hypoglycemia protocol Dextrose (Dextrose 50% Syringe 50 Ml) 25 ml IVP ONCE PRN; Protocol PRN Reason: hypoglycemia protocol Dextrose (Dextrose 50% Syringe 50 Ml) 50 ml IVP PRN PRN; Protocol PRN Reason: hypoglycemia protocol Enoxaparin Sodium (Enoxaparin 120 Mg/0.8 Ml Syringe) 110 mg SUBCUT 0900,2100 [facility] Last Admin: 01/16/21 09:15 Dose: 110 mg Documented by: Famotidine (Famotidine 20 Mg/2 Ml Inj) 20 mg IVP Q12H [facility] Last Admin: 01/16/21 17:48 Dose: 20 mg Documented by: Fentanyl (Fentanyl 50 Mcg/Ml Inj 2ml) 50 mcg IVP PRN PRN PRN Reason: Prior to sheath removal Glucagon (Glucagon 1 Mg/Ml Inj 1 Ml) 1 mg IM ONCE PRN; Protocol PRN Reason: Adult Acute Hypoglycemia Prot Glucagon (Glucagon 1 Mg/Ml Inj 1 Ml) 1 mg IM ONCE PRN; Protocol PRN Reason: Adult Acute Hypoglycemia Prot Dextrose (D5w) 500 mls @ 100 mls/hr IV ONCE PRN; Protocol PRN Reason: Adult Acute Hypoglycemia Prot Dextrose (D5w) 500 mls @ 100 mls/hr IV ONCE PRN; Protocol PRN Reason: Adult Acute Hypoglycemia Prot Insulin Human Regular 250 unit (/ Sodium Chloride) 252.5 mls @ 0 mls/hr IV .Q0M [facility]; Protocol Insulin Glargine (Insulin Glargine 100 Units/1 Ml) 30 unit SUBCUT Q12H [facility] Last Admin: 01/16/21 10:22 Dose: 30 unit Documented by: Insulin Human Lispro (Insulin Lispro 100 Unit/1 Ml) 0 unit SUBCUT WM&BEDTIME [facility]; Protocol Last Admin: 01/16/21 17:46 Dose: 10 unit Documented by: Insulin Human Lispro (Insulin Lispro 100 Unit/1 Ml) 10 unit SUBCUT TIDAC [facility] Last Admin: 01/16/21 17:47 Dose: 10 unit Documented by: Losartan Potassium (Losartan 50 Mg Tablet) 25 mg PO DAILY [facility] Last Admin: 01/16/21 09:16 Dose: 25 mg Documented by: Magnesium Hydroxide (Magnesium Hydroxide 30 Ml Udc) 30 ml PO DAILY PRN PRN Reason: CONSTIPATION Metoprolol Succinate (Metoprolol Succinate Er (24 Hr) 50 Mg Tablet) 50 mg PO 0900,2100 [facility] Last Admin: 01/16/21 09:16 Dose: 50 mg Documented by: Naloxone HCl (Naloxone 0.4 Mg/Ml Sdv) 0.1 mg IVP Q2M PRN PRN Reason: RESPIRATORY RATE < 8/MIN Nitroglycerin (Nitroglycerin 0.4 Mg Sublingual Tablet) 0.4 mg SUBLINGUAL Q5M PRN PRN Reason: CHEST PAIN Ondansetron HCl (Ondansetron 2 Mg/Ml Sdv 2 Ml) 4 mg IVP Q6H PRN PRN Reason: NAUSEA AND VOMITING Last Admin: 01/10/21 11:17 Dose: 4 mg Documented by: Temazepam (Temazepam 15 Mg Capsule) 15 mg PO BEDTIME PRN PRN Reason: INSOMNIA Vitamin D (Cholecalciferol (Vitamin D3) 5,000 Unit Tablet) 5,000 unit PO DAILY [facility] Last Admin: 01/16/21 09:16 Dose: 5,000 unit Documented by: Discharge Plan Discharge Patient Disposition: Xfer Other Condition: Stable Prescriptions: No Action atorvastatin 80 mg tablet 80 mg PO DAILY RF: 0 lisinopril 20 mg tablet 20 mg PO DAILY RF: 0 clopidogrel [Plavix] 75 mg tablet 75 mg PO DAILY RF: 0 pantoprazole 40 mg tablet,delayed release (DR/EC) 40 mg PO DAILY RF: 0 metformin 1,000 mg tablet 1,000 mg PO BID RF: 0 metoprolol tartrate 50 mg tablet 50 mg PO BID RF: 0 aspirin 81 mg Tablet,Chewable 81 mg PO DAILY RF: 0 Discharge Orders: Discharge Order (Routine); Ordered 01/16/21 Ordered By: Gabo Mcghee Transfer Out of Facility (Order); Ordered 01/16/21 Ordered By: Gabo Mcghee Discharge Diet: Regular Discharge Activity: Resume usual activity Transfer Attestations Time Spent in Transfer Care*: less than 30 min Quality Metrics Clinical Quality Measures: During this hospital stay, did patient experience: None Coding Level of Care Code Acute Clin Nurse for Chg Fwd Diagnoses NSTEMI (non-ST elevated myocardial infarction) I21.4 Multi-vessel coronary artery stenosis I25.10 Ischemic cardiomyopathy I25.5
--- NOTE | 2021-01-16 19:37 | PC.NURSE ---
Received report from ANGELO Bradshaw. Patient up in [place] walking. Denies pain at this time. Patient waiting transportation to [facility] as patient is being transferred for CABG. Patient verbalized complete understanding. Denies needs at this time. No distress observed.
[2021-01-16 20:15] LABS: Glucose Point of Care 256 mg/dL (70-110)
--- NOTE | 2021-01-16 21:38 | PC.NURSE ---
Patient transferred to [facility] for planned CABG. Patient taken by [facility] service at ~2100. Patient able to ambulate to stretcher without any difficulty. Denies pain or needs. Patient tolerated well. Left with positive attitude in good spirits. No distress observed.
== END 2021-01-16 21:00 | disposition home or self-care (01) | DRG 280 ==
LOC: ER 03:17 → ICU 03:18 → CSU 01-11 20:52
PROVIDERS: Internal Medicine; Internal Medicine Cardiovascular Disease; Nurse Practitioner Family; Admitting Provider Internal Medicine; Emergency Provider Emergency Medicine; Visit Provider Family Medicine
PROC: B211YZZ Fluoroscopy of Multiple Coronary Arteries using Other Contrast (ICD-10-PCS; principal; 2021-01-14 10:00)
DX: I21.4 Non-ST elevation (NSTEMI) myocardial infarction (principal); E11.10 Type 2 diabetes mellitus with ketoacidosis without coma; U07.1 COVID-19; J12.82 Pneumonia due to coronavirus disease 2019; E87.1 Hypo-osmolality and hyponatremia; T82.855A Stenosis of coronary artery stent, initial encounter; I50.20 Unspecified systolic (congestive) heart failure; Y71.1 Therapeutic (nonsurgical) and rehabilitative cardiovascular devices associated with adverse incidents; I11.0 Hypertensive heart disease with heart failure; I25.5 Ischemic cardiomyopathy; I25.118 Atherosclerotic heart disease of native coronary artery with other forms of angina pectoris; E66.9 Obesity, unspecified; E78.5 Hyperlipidemia, unspecified; K21.9 Gastro-esophageal reflux disease without esophagitis; E87.6 Hypokalemia; Z68.39 Body mass index [BMI] 39.0-39.9, adult; Z79.84 Long term (current) use of oral hypoglycemic drugs; Z95.5 Presence of coronary angioplasty implant and graft; Z82.49 Family history of ischemic heart disease and other diseases of the circulatory system; Z79.82 Long term (current) use of aspirin; Z79.02 Long term (current) use of antithrombotics/antiplatelets; Z91.19 Patient's noncompliance with other medical treatment and regimen
CPT/HCPCS: 36415; 36416; 36600; 71045; 80048; 80053; 80069; 82009; 82803; 82962; 83036; 83605; 83735; 83880; 84100; 84145; 84484; 85025; 85378; 86140; 86403; 87449; 93005; 93452; 94664; 96365; 96372; 96375; 99285; C1769; C1887; C1894; C8929; J0456; J0696; J1644; J1650; J1815 ×2; J2250; J2405; J3010; J3490; J7030; J7050; J7799; Q0163; Q9956; Q9967

== ENCOUNTER 2021-02-07 12:32 | Outpatient (CLI) | payer BC, SELFPAY ==
--- NOTE | 2021-02-07 12:38 | XR_ITS ---
WS: [id number] LEFT FOOT: 3 VIEW(S) TECHNIQUE: AP, oblique and lateral. HISTORY: LEFT FOOT DROP COMPARISON: None available. No acute fracture or dislocation. Normal tarsal/metatarsal alignment. Peripheral arterial calcifications. XR/XR foot LT min 3V* [id number] IMPRESSION: 1. No osseous abnormality. 2. Peripheral arterial disease.
== END 2021-02-07 12:33 | disposition home or self-care (01) ==
LOC: RAD 12:36
PROVIDERS: PCP Nurse Practitioner Family; Visit Provider Nurse Practitioner Family
DX: M21.372 Foot drop, left foot (principal); I73.9 Peripheral vascular disease, unspecified
CPT/HCPCS: 73630

== ENCOUNTER 2021-02-14 07:45 | Outpatient (RCR) | payer BC, SELFPAY | END 2021-02-28 23:59 | disposition home or self-care (01) | LOC: SPT 07:45 | PROVIDERS: PCP Nurse Practitioner Family; Referring Provider Nurse Practitioner Family; Visit Provider Nurse Practitioner Family | DX: M21.372 Foot drop, left foot (principal) | CPT/HCPCS: 97032; 97110; 97161 ==

== ENCOUNTER 2021-03-01 06:00 | Outpatient (RCR) | payer BC, SELFPAY | END 2021-03-31 23:59 | disposition home or self-care (01) | LOC: SPT 06:00 | PROVIDERS: PCP Nurse Practitioner Family; Referring Provider Nurse Practitioner Family; Visit Provider Nurse Practitioner Family | DX: M21.372 Foot drop, left foot (principal) | CPT/HCPCS: 97032; 97110 ==

== ENCOUNTER 2021-03-04 12:40 | Outpatient (RCR) | payer BC, SELFPAY | END 2021-03-31 23:59 | disposition home or self-care (01) | LOC: CR 12:40 | PROVIDERS: PCP Nurse Practitioner Family; Referring Provider Internal Medicine Cardiovascular Disease; Visit Provider Internal Medicine Cardiovascular Disease | DX: Z95.1 Presence of aortocoronary bypass graft (principal) | CPT/HCPCS: 93798 ==

== ENCOUNTER 2021-04-01 06:00 | Outpatient (RCR) | payer BC, SELFPAY | END 2021-04-28 23:59 | disposition home or self-care (01) | LOC: SPT 06:00 | PROVIDERS: PCP Nurse Practitioner Family; Referring Provider Nurse Practitioner Family; Visit Provider Nurse Practitioner Family | DX: M21.372 Foot drop, left foot (principal) | CPT/HCPCS: 97032; 97110 ==

== ENCOUNTER 2021-04-01 11:34 | Outpatient (RCR) | payer BC, SELFPAY | END 2021-04-28 23:59 | disposition home or self-care (01) | LOC: CR 11:34 | PROVIDERS: PCP Nurse Practitioner Family; Referring Provider Internal Medicine Cardiovascular Disease; Visit Provider Internal Medicine Cardiovascular Disease | DX: Z95.1 Presence of aortocoronary bypass graft (principal) | CPT/HCPCS: 93798 ==

== ENCOUNTER → 2021-04-08 10:15 | Outpatient (BNVA) | payer BC, SELFPAY | PROVIDERS: PCP Nurse Practitioner Family; Visit Provider Nurse Practitioner Family | DX: I10 Essential (primary) hypertension (principal); I25.5 Ischemic cardiomyopathy | CPT/HCPCS: 80048; 83735; 83880 ==

== ENCOUNTER 2021-04-29 11:25 | Outpatient (RCR) | payer BC, SELFPAY | END 2021-05-29 23:59 | disposition home or self-care (01) | LOC: CR 11:25 | PROVIDERS: PCP Nurse Practitioner Family; Referring Provider Internal Medicine Cardiovascular Disease; Visit Provider Internal Medicine Cardiovascular Disease | DX: Z95.1 Presence of aortocoronary bypass graft (principal) | CPT/HCPCS: 93798 ==

== ENCOUNTER 2021-05-14 12:35 | Outpatient (CLI) | payer BC, SELFPAY ==
[2021-05-14 14:03] LABS: Estmated Average Glucose 177; Hemoglobin A1C 7.8 % (4.0-6.0)
[2021-05-14 14:13] LABS: Alanine Aminotransferase 38 U/L (0-41); Albumin Level 3.6 g/dL (3.5-5.2); Alkaline Phosphatase 107 IU/L (40-130); Anion Gap 13.2 (5-19); Aspartate Amino Transferase 24 U/L (0-40); Blood Urea Nitrogen 24 mg/dL (6-20); Calcium 9.5 mg/dL (8.5-10.5); Carbon Dioxide 27 mmol/L (22-29); Chloride 103 mmol/L (98-107); Cholesterol 151 mg/dL (0-200); Globulin 3.1 g/dL (1.3-4.6); Glucose 193 mg/dL (65-115); HDL Cholesterol 52 mg/dL (60-100); LDL Cholesterol Calculated 61 mg/dL (50-129); Magnesium 1.6 mg/dL (1.7-2.3); NT Pro B Type Natriuretic Pept 724 pg/mL (0-125); Osmolality Calculated 297 mOsm/kg (285-295); Potassium 4.2 mmol/L (3.5-5.1); Sodium 139 mmol/L (136-145); Total Bilirubin 0.3 mg/dL (0.15-1.2); Total Protein 6.7 g/dL (6.6-8.7); Triglycerides 191 mg/dL (0-150); VLDL Cholestrol Calculation 38 mg/dL (0-30)
== END 2021-05-14 12:36 | disposition home or self-care (01) ==
LOC: RAD 12:37
PROVIDERS: Internal Medicine Cardiovascular Disease; Nurse Practitioner Family; PCP Nurse Practitioner Family; Visit Provider Specialist
DX: I25.5 Ischemic cardiomyopathy (principal); I21.4 Non-ST elevation (NSTEMI) myocardial infarction; E11.9 Type 2 diabetes mellitus without complications
CPT/HCPCS: 80048; 80053; 80061; 83036; 83735; 83880

== ENCOUNTER 2021-05-30 12:31 | Outpatient (RCR) | payer BC, SELFPAY | END 2021-06-28 23:59 | disposition home or self-care (01) | LOC: CR 12:31 | PROVIDERS: PCP Nurse Practitioner Family; Referring Provider Internal Medicine Cardiovascular Disease; Visit Provider Internal Medicine Cardiovascular Disease | DX: Z95.1 Presence of aortocoronary bypass graft (principal) | CPT/HCPCS: 93798 ==

== ENCOUNTER 2021-07-03 11:55 | Outpatient (RCR) | payer BC, SELFPAY | END 2021-07-29 23:59 | disposition home or self-care (01) | LOC: CR 11:55 | PROVIDERS: PCP Nurse Practitioner Family; Referring Provider Internal Medicine Cardiovascular Disease; Visit Provider Internal Medicine Cardiovascular Disease | DX: Z95.1 Presence of aortocoronary bypass graft (principal) | CPT/HCPCS: 93798 ==

== ENCOUNTER 2021-07-30 11:46 | Outpatient (RCR) | payer BC, SELFPAY | END 2021-08-28 23:59 | disposition home or self-care (01) | LOC: CR 11:46 | PROVIDERS: PCP Nurse Practitioner Family; Referring Provider Internal Medicine Cardiovascular Disease; Visit Provider Internal Medicine Cardiovascular Disease | DX: Z95.1 Presence of aortocoronary bypass graft (principal) | CPT/HCPCS: 93798 ==

== ENCOUNTER 2022-06-04 06:38 | Outpatient (CLI) | payer BC, SELFPAY ==
--- NOTE | 2022-06-04 07:15 | USCV_ITS ---
Harry Rizo Age: 46 Gender: M : 1975 Exam Date: 06/04/2022 06:57 Ordering Phys: Denise Torres Technologist: Jennifer Celis [place] [facility] [place]: Post GA and CABG BP: 140 / 70 HR: 71 Rhythm: Sinus Technical Quality: Adequate with Optison MEASUREMENTS (Male / Female) Normal Values 2D ECHO LV Diastolic Diameter PLAX 4.5 cm 4.2 - 5.9 / 3.9 - 5.3 cm LV Systolic Diameter PLAX 3.5 cm LV Chamber Size 3.0 cm IVS Diastolic Thickness 1.0 cm 0.6 - 1.0 / 0.6 - 0.9 cm IVS Systolic Thickness 1.2 cm LVPW Diastolic Thickness 1.9 cm 0.6 - 1.0 / 0.6 - 0.9 cm LVPW Systolic Thickness 1.4 cm RV Chamber Size 3.2 cm LVOT Diameter 2.0 cm LV Ejection Fraction 2D Teich 46.2 % LV Ejection Fraction MOD 2C 66.3 % LV Ejection Fraction 2C AL 65.4 % LA Diameter 3.8 cm LA Width 3.4 cm LA Height 3.9 cm RA Width 4.4 cm RA Height 4.1 cm Aorta at Sinotubular Diameter 2.4 cm IVC Diameter 2.2 cm M-MODE Aortic Annulus Diameter 4.3 cm LA Ao Ratio MM 0.8 MV E Point Septal Separation 0.9 cm DOPPLER AV Peak Velocity 88.0 cm/s LVOT Peak Velocity 91.0 cm/s AV Area Cont Eq vti 3.8 cm squared AV Area Cont Eq pk 3.3 cm squared MV Peak Velocity 107.0 cm/s MV Area PHT 5.0 cm squared Mitral E to A Ratio 1.4 MV E' Velocity 57.0 cm/s Mitral E to MV E' Ratio 17.1 Mitral E to LV E' Lateral Ratio 17.1 Mitral E to LV E' Septal Ratio 17.4 TR Peak Velocity 115.9 cm/s TR Peak Gradient 5.4 mmHg TR Mean Velocity 83.0 cm/s TR Mean Gradient 3.2 mmHg TR Velocity Time Integral 31.8 cm TV Peak E Velocity 40.0 cm/s Right Atrial Pressure 3.0 mmHg Pulmonary Artery Systolic Pressu 8.4 mmHg PV Peak Velocity 66.0 cm/s RV Acceleration Time 0.1 s RV Ejection Time 0.3 s RV AcT/ET 0.3 FINDINGS Left Ventricle Normal left ventricular size and systolic function, EF 65 %. No regional wall motion abnormalities. (Echo contrast - Optison was used to delineate the endocardium and to estimate the LV ejection fraction) Right Ventricle Right ventricle not well visualized. Right Atrium Possibly of normal size Left Atrium Possibly of normal size Mitral Valve The valve morphology could not be delineated well. Aortic Valve The valve morphology could not be delineated well. Tricuspid Valve The valve morphology could not be delineated well. Pulmonic Valve Pulmonic valve not well visualized. Pericardium No pericardial effusion. Aorta Could not be visualized well IVC Could not be visualized well CONCLUSIONS Normal LV size with an ejection fraction of 65%. No gross wall motion normalities. Possibly normal atrial sizes. There is no pericardial effusion. Technically difficult study because of the poor ultrasonic window. (Echo contrast - Optison was used to delineate the endocardium and to estimate the LV ejection fraction) Dr Stacey Pagan MD [facility] (Electronically Signed) Final Date: 10 June 2022 08:37 S
[2022-06-04] MEDS: perflutren protein-a microsphr 0.22 mg/mL SDV 3 mL IV (07:59)
== END 2022-06-04 06:39 | disposition home or self-care (01) ==
LOC: RAD 06:41
PROVIDERS: PCP Nurse Practitioner Family; Visit Provider Nurse Practitioner Family
DX: I25.5 Ischemic cardiomyopathy (principal); I25.10 Atherosclerotic heart disease of native coronary artery without angina pectoris; R06.02 Shortness of breath; I25.2 Old myocardial infarction; Z95.1 Presence of aortocoronary bypass graft
CPT/HCPCS: C8929; Q9956

== ENCOUNTER 2023-10-27 11:22 | Outpatient (CLI) | payer BC, SELFPAY ==
[2023-10-27 12:16] LABS: Estmated Average Glucose 197; Hemoglobin A1C 8.5 % (4.0-6.0)
[2023-10-27 12:22] LABS: Alanine Aminotransferase 28 U/L (0-41); Albumin Level 3.7 g/dL (3.5-5.2); Alkaline Phosphatase 84 U/L (40-130); Anion Gap 14.3 (5-19); Aspartate Amino Transferase 16 U/L (0-40); Blood Urea Nitrogen 33 mg/dL (6-20); Calcium 9.4 mg/dL (8.5-10.5); Carbon Dioxide 27 mmol/L (22-29); Chloride 102 mmol/L (98-107); Chol HDL Ratio 3.88 mg/dL (1.0-5.00); Cholesterol 159 mg/dL (0-200); Globulin 3.1 g/dL (1.3-4.6); Glomerular Filtration Rate 79.4 mL/min (90-130); Glucose 167 mg/dL (65-115); HDL Cholesterol 41 mg/dL (60-100); LDL Cholesterol Calculated 90 mg/dL (50-129); Osmolality Calculated 299 mOsm/kg (285-295); Potassium 4.3 mmol/L (3.5-5.1); Sodium 139 mmol/L (136-145); Total Bilirubin 0.4 mg/dL (0.15-1.2); Total Protein 6.8 g/dL (6.6-8.7); Triglycerides 140 mg/dL (0-150)
[2023-10-27 12:42] LABS: Creatinine Urine, Random 91 mg/dL (39-259)
[2023-10-27 13:00] LABS: Microalbum Creatinine Ratio Ur 648 mg/dL (0-20); Microalbumin Random Urine 59 ug/dL (0-20)
[2023-10-28 08:04] LABS: C-Peptide 0.55 ng/mL (0.80-3.85)
== END 2023-10-27 11:23 | disposition home or self-care (01) ==
LOC: LAB 11:23
PROVIDERS: PCP Nurse Practitioner Family; Visit Provider Internal Medicine
DX: E11.9 Type 2 diabetes mellitus without complications (principal); E78.5 Hyperlipidemia, unspecified
CPT/HCPCS: 36415; 80053; 80061; 82044; 83036; 84681; 86337; 86341

== ENCOUNTER 2024-04-25 07:22 | Outpatient (CLI) | payer BC, SELFPAY ==
[2024-04-25 08:04] LABS: Estmated Average Glucose 206; Hemoglobin A1C 8.8 % (4.0-6.0)
[2024-04-25 08:06] LABS: Alanine Aminotransferase 32 U/L (0-41); Albumin Level 3.3 g/dL (3.5-5.2); Alkaline Phosphatase 95 U/L (40-130); Anion Gap 13.7 (5-19); Aspartate Amino Transferase 14 U/L (0-40); Blood Urea Nitrogen 30 mg/dL (6-20); Calcium 8.4 mg/dL (8.5-10.5); Carbon Dioxide 28 mmol/L (22-29); Chloride 100 mmol/L (98-107); Cholesterol 172 mg/dL (0-200); Globulin 3.4 g/dL (1.3-4.6); Glomerular Filtration Rate 79.4 mL/min (90-130); Glucose 375 mg/dL (65-115); HDL Cholesterol 43 mg/dL (60-100); LDL Cholesterol Calculated 92 mg/dL (50-129); LDL HDL Ratio 2.14 RATIO (0.00-3.22); Osmolality Calculated 306 mOsm/kg (285-295); Potassium 4.7 mmol/L (3.5-5.1); Sodium 137 mmol/L (136-145); Total Bilirubin 0.2 mg/dL (0.15-1.2); Total Protein 6.7 g/dL (6.6-8.7); Triglycerides 187 mg/dL (0-150)
[2024-04-25 08:14] LABS: Creatinine Urine, Random 113 mg/dL (39-259)
[2024-04-25 08:27] LABS: Microalbum Creatinine Ratio Ur 1832 mg/dL (0-20); Microalbumin Random Urine 207 ug/dL (0-20)
== END 2024-04-25 07:23 | disposition home or self-care (01) ==
LOC: LAB 07:25
PROVIDERS: PCP Nurse Practitioner Family; Visit Provider Internal Medicine
DX: E11.9 Type 2 diabetes mellitus without complications (principal)
CPT/HCPCS: 36415; 80053; 80061; 82044; 83036

== ENCOUNTER 2024-04-26 08:49 | Emergency (ER) | payer BC, SELFPAY ==
[2024-04-26 08:52] VITALS: BP 231/118; PULSE 104; RESP 20; TEMP 36.6; O2SAT 98; BMI 50.1
--- NOTE | 2024-04-26 08:52 | ECG_ITS ---
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
--- NOTE | 2024-04-26 08:54 | XR_ITS ---
WS: [id number] Portable AP upright chest, 04/26/2024 Clinical Data: dyspnea/cough Comparison: Portable chest, 01/10/2021 Findings: No nodules, masses or effusions are seen. The heart is normal. The pulmonary vascularity is not increased. No pneumonia or pneumothorax is seen. Midline sternotomy sutures are present. There are monitor leads on the chest wall. XR/XR chest 1V portable [id number] Impression: Negative chest.
--- NOTE | 2024-04-26 08:54 | W.ED.GENADLT ---
HPI - General Adult General: Chief complaint: General Medical Stated complaint: High BP Time Seen by Provider: 04/26/24 08:50 History of Present Illness: 48-year-old male presents emergency room as a rapid response from endocrinology office. Has been out of his blood pressure medicines for several months. He is completely asymptomatic at this time he has no headache no chest pain no difficulty breathing or swallowing. He was there for routine visit today as they were beginning his intake and doing his vitals his blood pressure was noted to be in the 200 systolic range a rapid response was called he was brought to the emergency room. Associated symptoms: Deny chest pain, dyspnea or rash Related Data Home Medications ?Medication ?Instructions ?Recorded ?Confirmed aspirin 81 mg chewable tablet 81 mg PO DAILY 01/10/21 04/26/24 metformin 1,000 mg tablet 1,000 mg PO DAILY 02/19/21 04/26/24 fluoxetine 10 mg capsule 10 mg PO DAILY 05/27/22 04/26/24 insulin regular human 100 unit/mL See Rx Instructions .Route .COMPLEX 04/26/24 04/26/24 (3 mL) subcutaneous pen (Novolin R FlexPen) losartan 50 mg tablet 50 mg PO DAILY 04/26/24 04/26/24 Previous Rx's ?Medication ?Instructions ?Recorded pantoprazole 40 mg tablet,delayed 40 mg PO DAILY #30 tabs 02/19/21 release magnesium oxide 400 mg PO DAILY #90 caps 05/15/21 atorvastatin 80 mg tablet 80 mg PO DAILY #90 tabs 07/21/21 ezetimibe 10 mg tablet (Zetia) 10 mg PO DAILY #90 tabs 10/12/22 insulin degludec 100 unit/mL (3 82 unit (0.82 mL) SUBCUT DAILY #15 11/29/23 mL) subcutaneous pen (Tresiba mL FlexTouch U-100 insulin) blood-glucose sensor (FreeStyle #1 ea 03/13/24 Mitra 3 Sensor device) losartan 50 mg tablet 50 mg PO DAILY #30 tabs 04/26/24 metoprolol succinate 100 mg 100 mg PO DAILY #30 ea 04/26/24 capsule sprinkle, ext. release 24 hr metoprolol succinate 100 mg 100 mg PO DIRECTED #90 tabs 04/26/24 tablet,extended release 24 hr spironolactone 50 mg tablet 50 mg PO DAILY #30 tabs 04/26/24 spironolactone 50 mg tablet 50 mg PO DAILY #90 tabs 04/26/24 valsartan 160 mg tablet 160 mg PO DAILY 1 month #30 tabs 04/26/24 Allergies Allergy/AdvReac Type Severity Reaction Status Date / Time acetaminophen (From Vicodin) Allergy ALGY-Swell Verified 04/25/24 16:58 Lip/Tongue/Throat hydrocodone (From Vicodin) Allergy ALGY-Swell Verified 04/25/24 16:58 Lip/Tongue/Throat Review of Systems Const: Denies: fever(s) or chills Card: Denies: chest pain Resp: Denies: dyspnea GI: Denies: abdominal pain : Denies: dysuria, urinary frequency or urinary urgency Musc: Denies: neck pain or back pain Skin/Breast: Denies: rash PFSH ED PFSH: Medical History Hypertension Dyslipidemia CAD in [place] artery Diabetes mellitus NSTEMI (non-ST elevated myocardial infarction) DKA (diabetic ketoacidosis) COVID-19 Surgical History S/P CABG x 3 Stented coronary artery Social History Smoking and tobacco/nicotine status: never used tobacco/nicotine Physical Exam Const: GENERAL APPEARANCE: cooperative ORIENTATION/CONSCIOUSNESS: Yes awake, Yes oriented to person, Yes oriented to place and Yes oriented to time HENMT: COMMON NORMALS: normocephalic, atraumatic and hearing grossly normal bilaterally HEAD & SCALP: normocephalic and atraumatic Resp: COMMON NORMALS: normal respiratory effort, No retractions, No use of accessory muscles and clear to auscultation bilaterally AUSCULTATION: clear to auscultation bilaterally Cardio: COMMON NORMALS: regular rate, regular rhythm and No murmurs present (Cardio) RATE: regular rate RHYTHM: regular rhythm GI: COMMON NORMALS: Soft to palpation and No hepatosplenomegaly present AUSCULTATION: Yes normoactive bowel sounds PALPATION: Yes Soft to palpation, No Tenderness to palpation present (GI), No Guarding due to palpation present (GI) and Yes No hepatosplenomegaly present Extremity: COMMON NORMALS: normal to inspection, capillary refill normal, no clubbing, cyanosis or edema, no calf tenderness and no pedal edema Neuro: SENSORIUM/ORIENTATION: Yes oriented to person, Yes oriented to place and Yes oriented to time OTHER: No focal neurologic deficits are noted. Skin: COMMON NORMALS: no rashes or lesions noted GENERAL SKIN EXAM: no rashes or lesions noted Course Vital Signs: Vital signs: Vital Signs Temperature 97.8 F 04/26/24 08:52 Pulse Rate 92 04/26/24 10:16 Respiratory Rate 16 04/26/24 09:26 Blood Pressure 162/93 04/26/24 10:16 Pulse Oximetry 95 04/26/24 10:16 Oxygen Delivery Me thod Room Air 04/26/24 09:45 MDM - General Adult Medical Decision Making Patient essentially asymptomatic with accelerated hypertension due to noncompliance with his medications. Patient given hydralazine labetalol here with improvement of blood pressure. Gave him his losartan metoprolol and spironolactone p.o. Patient given refills for the same medications at home for 1 month he should follow-up with his doctor within the next week to reevaluate blood pressure Medical Records I reviewed the patient's medical records. Lab Data I reviewed the patient's lab results. 04/26/24 09:11 04/26/24 09:11 Radiology Impressions Chest X-Ray 04/26/24 08:54 Impression: Negative chest. Laboratory Results WBC 7.33 10^3/uL (3.29-11.43) 04/26/24 09:11 RBC 4.86 10^6/uL (3.85-5.65) 04/26/24 09:11 Hgb 14.00 g/dL (11.27-16.99) 04/26/24 09:11 Hct 43.4 % (37-53) 04/26/24 09:11 MCV 89.3 fl (82-101) 04/26/24 09:11 MCH 28.8 pg (27-33) 04/26/24 09:11 MCHC 32.3 g/dL (30-55) 04/26/24 09:11 RDW 12.4 % (12.1-15.1) 04/26/24 09:11 Plt Count 220 10^3/cmm (157-399) 04/26/24 09:11 MPV 10.4 fL (7.4-10.4) 04/26/24 09:11 Neut % (Auto) 58.1 % 04/26/24 09:11 Lymph % (Auto) 32.7 % 04/26/24 09:11 Cuming % (Auto) 5.9 % 04/26/24 09:11 Eos % (Auto) 2.0 % 04/26/24 09:11 Baso % (Auto) 0.8 % 04/26/24 09:11 Neut # (Auto) 4.25 10^3/uL (1.8-7.7) 04/26/24 09:11 Lymph # (Auto) 2.4 10^3/uL (0.8-4.8) 04/26/24 09:11 Cuming # (Auto) 0.4 10^3/uL (0.2-0.9) 04/26/24 09:11 Eos # (Auto) 0.2 10^3/uL (0.0-0.8) 04/26/24 09:11 Baso # (Auto) 0.1 10^3/uL (0.0-0.1) 04/26/24 09:11 Nucleated RBC % (auto) 0 % 04/26/24 09:11 Nucleated RBCs # 0.0 /100WBC 04/26/24 09:11 Sodium 139 mmol/L (136-145) 04/26/24 09:11 Potassium 4.8 mmol/L (3.5-5.1) 04/26/24 09:11 Chloride 102 mmol/L (98-107) 04/26/24 09:11 Carbon Dioxide 26 mmol/L (22-29) 04/26/24 09:11 Anion Gap 15.8 (5-19) 04/26/24 09:11 BUN 29 mg/dL (6-20) H 04/26/24 09:11 Creatinine 0.9 mg/dL (0.7-1.2) 04/26/24 09:11 GFR Calculation 89.7 mL/min (90-130) L 04/26/24 09:11 Glucose 435 mg/dL (65-115) H 04/26/24 09:11 Calculated Osmolality 313 mOsm/kg (285-295) H 04/26/24 09:11 Calcium 8.7 mg/dL (8.5-10.5) 04/26/24 09:11 Total Bilirubin 0.3 mg/dL (0.15-1.2) 04/26/24 09:11 AST 14 U/L (0-40) 04/26/24 09:11 ALT 31 U/L (0-41) 04/26/24 09:11 Alkaline Phosphatase 103 U/L (40-130) 04/26/24 09:11 Total Protein 6.6 g/dL (6.6-8.7) 04/26/24 09:11 Albumin 3.4 g/dL (3.5-5.2) L 04/26/24 09:11 Globulin 3.2 g/dL (1.3-4.6) 04/26/24 09:11 All radiology interpretation(s) finalized by discharge Discharge Plan Discharge Patient Disposition: Home Clinical Impression: Hypertension Condition: Stable Prescriptions: New metoprolol succinate 100 mg capsule,tierra,ER 24hr 100 mg PO DAILY Qty: 30 0RF losartan 50 mg tablet 50 mg PO DAILY Qty: 30 0RF spironolactone 50 mg tablet 50 mg PO DAILY Qty: 30 0RF No Action pantoprazole 40 mg tablet,delayed release (DR/EC) 40 mg PO DAILY Qty: 30 0RF spironolactone 50 mg tablet 50 mg PO DAILY Qty: 90 3RF metoprolol succinate 100 mg tablet extended release 24 hr 100 mg PO DIRECTED Qty: 90 1RF Rx Instructions: Take 1/2 tab twice daily valsartan 160 mg tablet 160 mg PO DAILY 30 Days Qty: 30 0RF Rx Instructions: needs appointment for further refills fluoxetine 10 mg capsule 10 mg PO DAILY magnesium oxide 400 mg magnesium capsule 400 mg PO DAILY Qty: 90 3RF atorvastatin 80 mg tablet 80 mg PO DAILY Qty: 90 1RF ezetimibe [Zetia] 10 mg tablet 10 mg PO DAILY Qty: 90 2RF insulin degludec [Tresiba FlexTouch U-100] 100 unit/mL (3 mL) insulin pen 82 unit SUBCUT DAILY Qty: 15 3RF (DME) FreeStyle Mitra 3 Sensor Device See Rx Instructions .ROUTE .COMPLEX Qty: 1 1RF Dose Instruction: DIRECTED Rx Instructions: DIRECTED metformin 1,000 mg tablet 1,000 mg PO DAILY aspirin 81 mg Tablet,Chewable 81 mg PO DAILY losartan 50 mg tablet 50 mg PO DAILY Novolin R FlexPen 100 unit/mL (3 mL) insulin pen See Rx Instructions .ROUTE .COMPLEX Rx Instructions: sliding scale dosing, usually 30 units Discharge Orders: Discharge ED (Routine); Ordered 04/26/24 Ordered By: Beka Prabhakar Referrals: Cassie Varghese, DRIVER GUARD [Primary Care Provider] - Discharge Diet: Usual diet Discharge Activity: Increase activity as tolerated Patient Instructions: Opioid Safety, Pain Management Activity Restrictions/Additional Instructions: Thank you for choosing [facility] for your healthcare needs today. It is very important that you follow up as instructed or that you return to the Emergency Department should you have concerns or if your condition changes or worsens in any way. You are seen emergency room for elevated blood pressure. He did respond well to the medications that you were given. We refilled your losartan metoprolol and spironolactone. Recommend that you follow-up with your primary care doctor within the next 2 to 3 days to reevaluate your blood pressure. 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
[2024-04-26 09:17] LABS: Basophils # 0.1 10^3/uL (0.0-0.1); Basophils % 0.8 %; Eosinophils # 0.2 10^3/uL (0.0-0.8); Hematocrit 43.4 % (37-53); Lymphocytes # 2.4 10^3/uL (0.8-4.8); Lymphocytes % 32.7 %; Mean Corpuscular HGB Conc 32.3 g/dL (30-55); Mean Corpuscular Hemoglobin 28.8 pg (27-33); Mean Corpuscular Volume 89.3 fl (82-101); Mean Platelet Volume 10.4 fL (7.4-10.4); Monocytes # 0.4 10^3/uL (0.2-0.9); Monocytes % 5.9 %; Neutrophils # 4.25 10^3/uL (1.8-7.7); Neutrophils % 58.1 %; Nucleated Red Blood Cells % 0 %; Platelet Count 220 10^3/cmm (157-399); Red Blood Count 4.86 10^6/uL (3.85-5.65); Red Cell Distribution Width 12.4 % (12.1-15.1); White Blood Count 7.33 10^3/uL (3.29-11.43)
[2024-04-26] MEDS: labetalol 5 mg/mL SDV 20mL 10 MG IVP (09:20)
[2024-04-26] MEDS: hyDRALAzine 20 mg/mL INJ 1 mL 10 MG IVP (09:20)
[2024-04-26 09:26] VITALS: BP 173/110; PULSE 96; RESP 16; O2SAT 95
--- NOTE | 2024-04-26 09:31 | PC.PHAR ---
patient is out of metoprolol and spironolactone and also confirms that doctor has him on both losartan and valsartan
[2024-04-26 09:32] LABS: Alanine Aminotransferase 31 U/L (0-41); Albumin Level 3.4 g/dL (3.5-5.2); Alkaline Phosphatase 103 U/L (40-130); Anion Gap 15.8 (5-19); Aspartate Amino Transferase 14 U/L (0-40); Blood Urea Nitrogen 29 mg/dL (6-20); Calcium 8.7 mg/dL (8.5-10.5); Carbon Dioxide 26 mmol/L (22-29); Chloride 102 mmol/L (98-107); Creatinine Clr Calc Pharmacy 141.7156; Globulin 3.2 g/dL (1.3-4.6); Glomerular Filtration Rate 89.7 mL/min (90-130); Glucose 435 mg/dL (65-115); Osmolality Calculated 313 mOsm/kg (285-295); Potassium 4.8 mmol/L (3.5-5.1); Sodium 139 mmol/L (136-145); Total Bilirubin 0.3 mg/dL (0.15-1.2); Total Protein 6.6 g/dL (6.6-8.7)
[2024-04-26 09:45] VITALS: BP 154/86; PULSE 91; O2SAT 98
[2024-04-26] MEDS: metoprolol succinate ER (24 HR) 50 mg Tablet 100 MG PO (10:01)
[2024-04-26] MEDS: amlodipine 10 mg Tablet PO (10:01)
[2024-04-26 10:05] VITALS: BP 162/93
[2024-04-26] MEDS: losartan 50 mg Tablet PO (10:05)
[2024-04-26 10:16] VITALS: BP 162/93; PULSE 92; O2SAT 95
== END 2024-04-26 10:17 | disposition home or self-care (01) ==
PROVIDERS: Emergency Provider Family Medicine; PCP Nurse Practitioner Family
DX: I10 Essential (primary) hypertension (principal); Z79.4 Long term (current) use of insulin; Z79.84 Long term (current) use of oral hypoglycemic drugs; Z79.82 Long term (current) use of aspirin; E78.5 Hyperlipidemia, unspecified; I25.10 Atherosclerotic heart disease of native coronary artery without angina pectoris; E11.9 Type 2 diabetes mellitus without complications
CPT/HCPCS: 36415; 71045; 80053; 85025; 93005; 96374; 96375; 99285; J0360; J3490

== ENCOUNTER → 2024-07-19 16:22 | Outpatient (BNVA) | payer BC, SELFPAY | PROVIDERS: PCP Nurse Practitioner Family; Visit Provider Internal Medicine Cardiovascular Disease | DX: R07.9 Chest pain, unspecified (principal) | CPT/HCPCS: 93005 ==

== ENCOUNTER 2024-10-03 06:47 | Outpatient (CLI) | payer BC, SELFPAY ==
--- NOTE | 2024-10-03 06:15 | USCV_ITS ---
Harry Rizo Age: 48 Gender: M : 1975 Exam Date: 10/03/2024 07:48 Ordering Phys: Annmarie Cummings MD ([email or web address]) Technologist: JOANNE Exam Location: [facility] [place] Indication: Preop. H/o [place] and open heart surg BP: 158 / 110 HR: 77 Rhythm: Sinus Technical Quality: Adequate MEASUREMENTS (Male / Female) Normal Values 2D ECHO LV Ejection Fraction MOD 4C 54.5 % LV Ejection Fraction MOD 2C 35.4 % LV Ejection Fraction 2C AL 39.3 % DOPPLER AV Peak Velocity 104.0 cm/s LVOT Peak Velocity 102.0 cm/s MV Peak Velocity 117.0 cm/s MV Area PHT 7.5 cm squared Mitral E to A Ratio 1.3 FINDINGS Left Ventricle Right Ventricle Right Atrium Left Atrium Mitral Valve Aortic Valve Tricuspid Valve Pulmonic Valve Pericardium Aorta IVC CONCLUSIONS Technically very limited quality echocardiogram. Even with contrast very limited visualization because of poor ultrasonic windows. Grossly LV systolic function appears mildly reduced. Regional wall motion abnormalities cannot be accurately assessed because of limited visualization Tommie Rodriguez MD (Electronically Signed) Final Date: 04 October 2024 13:10 S
[2024-10-03] MEDS: perflutren protein-a microsphr 0.22 mg/mL SDV 3 mL IV (07:13)
== END 2024-10-03 06:48 | disposition home or self-care (01) ==
LOC: RAD 06:47
PROVIDERS: PCP Nurse Practitioner Family; Visit Provider Internal Medicine Cardiovascular Disease
DX: I25.10 Atherosclerotic heart disease of native coronary artery without angina pectoris (principal); I50.9 Heart failure, unspecified
CPT/HCPCS: C8929